=== PATIENT | female | born 1950 | race Caucasian/White ===

== ENCOUNTER → 2020-08-11 | Outpatient (CLI) | payer MEDICARE, SELFPAY ==
[2020-08-11 14:54] VITALS: BMI 25.5
[2020-08-11 21:47] LABS: Absolute Lymphocyte Count 3.41 X10^3/uL (0.83-4.51); Absolute Neutrophil Count 4.8 X10^3/uL (2.0-7.7); Basophil# 0.05 X10^3/uL; Basophil% 0.6 % (0-1); Eosinophil# 0.13 X10^3/uL; Eosinophils% 1.4 % (0-5); Hemoglobin 13.7 g/dL (12.0-15.0); Lymphocyte # 3.41 X10^3/ul (4.0); Lymphocyte % 37.8 % (19-41); Mean Corp Hgb Conc 31.9 g/dL (32-36); Mean Corpuscular Hgb 27.9 pg (27.0-32.0); Mean Corpuscular Volume 87.6 fL (81-99); Mean Platelet Vol. 9.6 fl (6.2-12.0); Monocyte# 0.61 X10^3/uL; Monocyte% 6.8 % (0-10); NRBC Flagged by Analyzer 0 % (0-5); Neutrophil % 53.3 % (47-70); Platelet Count 371 K/mm3 (150-450); RBC Distribution Width CV 12.9 % (11.6-14.6); RBC Distribution Width SD 41.5 fl (35.1-43.9); Red Blood Count 4.91 M/mm3 (4.2-5.4)
[2020-08-11 22:17] LABS: ALB/GLOB Ratio 0.9 RATIO (0.9-2.4); AST(SGOT) 12 U/L (15-37); Alanine Aminotransfer ALT/SGPT 19 U/L (13-56); Albumin, Serum 3.8 g/dL (3.2-5.0); Alkaline Phosphatase 71 U/L (45-117); Anion Gap 5 (5-15); BUN 20 mg/dL (7-18); BUN/Creat Ratio 20.4 RATIO (10-20); Chloride 103 mmol/L (98-107); Cholesterol 223 mg/dL (200); Creatinine, Serum 0.98 mg/dL (0.55-1.02); EST Glomerular Filtration Rate 60 mL/min (>60); Est Glom Filt Rate - Afr Amer 73 mL/min (>60); Globulin 4.2 g/dL (2.2-4.2); Glucose 91 mg/dL (74-106); High Density Lipoprotein 41 mg/dL; Potassium 4.2 mmol/L (3.5-5.1); Sodium Level 137 mmol/L (136-145); Triglycerides 247 mg/dL; Very Low Density Lipoprotein 49 mg/dL (5-40)
== END | disposition home or self-care (01) ==
PROVIDERS: Referring Provider Nurse Practitioner; Visit Provider Nurse Practitioner
DX: I10 Essential (primary) hypertension (principal)
CPT/HCPCS: 80053; 80061; 85025

== ENCOUNTER 2021-10-23 21:32 | Outpatient (CLI) | payer MEDICARE, SELFPAY ==
[2021-10-23 21:41] LABS: Absolute Lymphocyte Count 3.09 X10^3/uL (0.83-4.51); Basophil# 0.05 X10^3/uL; Basophil% 0.6 % (0-1); Eosinophil# 0.22 X10^3/uL; Eosinophils% 2.8 % (0-5); Hematocrit 39.8 % (37-47); Lymphocyte # 3.09 X10^3/ul (0.83-4.51); Mean Corp Hgb Conc 32.7 g/dL (32-36); Mean Corpuscular Hgb 28.3 pg (27.0-32.0); Mean Corpuscular Volume 86.7 fL (81-99); Mean Platelet Vol. 9.7 fl (6.2-12.0); Monocyte# 0.59 X10^3/uL; Monocyte% 7.4 % (0-10); NRBC Flagged by Analyzer 0 % (0-5); Neutrophil # 3.97 X10^3/uL (2.7-7.7); Neutrophil % 50.1 % (47-70); Platelet Count 389 K/mm3 (150-450); RBC Distribution Width CV 12.7 % (11.6-14.6); RBC Distribution Width SD 40.3 fl (35.1-43.9); Red Blood Count 4.59 M/mm3 (4.2-5.4); White Blood Count 7.9 K/mm3 (4.4-11.0)
[2021-10-23 22:01] LABS: AST(SGOT) 16 U/L (15-37); Alanine Aminotransfer ALT/SGPT 25 U/L (13-56); Albumin, Serum 3.9 g/dL (3.2-5.0); Alkaline Phosphatase 71 U/L (45-117); Anion Gap 7 (5-15); BUN 19 mg/dL (7-18); BUN/Creat Ratio 20.7 RATIO (10-20); Calcium,Total 9.6 mg/dL (8.5-10.1); Chloride 102 mmol/L (98-107); Cholesterol 238 mg/dL (200); Creatinine, Serum 0.92 mg/dL (0.55-1.02); EST Glomerular Filtration Rate 65 mL/min (>60); Est Glom Filt Rate - Afr Amer 78 mL/min (>60); Globulin 3.9 g/dL (2.2-4.2); Glucose 122 mg/dL (74-106); High Density Lipoprotein 41 mg/dL; Potassium 3.8 mmol/L (3.5-5.1); Protein, Total 7.8 g/dL (6.4-8.2); Sodium Level 138 mmol/L (136-145); T4 Free Direct 1.09 ng/dL (0.76-1.46); Thyroid Stim Hormone (TSH) 2.32 uIU/mL (0.358-3.74); Triglycerides 225 mg/dL; Very Low Density Lipoprotein 45 mg/dL (5-40)
[2021-10-25 21:43] LABS: ANTINUCLEAR ANTIBODIES DIRECT Negative (Negative)
[2021-10-25 21:45] LABS: EBV Acute VCA IgM < 36.0 U/mL (0.0-35.9)
== END 2021-10-23 23:59 | disposition short-term general hospital (02) ==
PROVIDERS: Referring Provider Nurse Practitioner; Visit Provider Nurse Practitioner
DX: I10 Essential (primary) hypertension (principal); I73.00 Raynaud's syndrome without gangrene; L65.9 Nonscarring hair loss, unspecified; G47.10 Hypersomnia, unspecified
CPT/HCPCS: 80053; 80061; 84439; 84443; 85025; 86038; 86225; 86235; 86664; 86665

== ENCOUNTER → 2022-10-24 | Outpatient (CLI) | payer MEDICARE, SELFPAY ==
[2022-10-24 21:19] LABS: Absolute Lymphocyte Count 3.89 X10^3/uL (0.83-4.51); Absolute Neutrophil Count 4.4 X10^3/uL (2.0-7.7); Basophil# 0.04 X10^3/uL; Basophil% 0.4 % (0-1); Eosinophil# 0.11 X10^3/uL; Eosinophils% 1.2 % (0-5); Hematocrit 39.5 % (37-47); Hemoglobin 13.4 g/dL (12.0-15.0); Lymphocyte # 3.89 X10^3/ul (0.83-4.51); Lymphocyte % 42.2 % (19-41); Mean Corp Hgb Conc 33.9 g/dL (32-36); Mean Corpuscular Volume 85.5 fL (81-99); Mean Platelet Vol. 9.8 fl (6.2-12.0); Monocyte# 0.72 X10^3/uL; Monocyte% 7.8 % (0-10); NRBC Flagged by Analyzer 0 % (0-5); Neutrophil # 4.43 X10^3/uL (2.7-7.7); Neutrophil % 48.2 % (47-70); Platelet Count 326 K/mm3 (150-450); RBC Distribution Width CV 13.1 % (11.6-14.6); RBC Distribution Width SD 40.8 fl (35.1-43.9); Red Blood Count 4.62 M/mm3 (4.2-5.4); White Blood Count 9.2 K/mm3 (4.4-11.0)
[2022-10-24 21:37] LABS: ALB/GLOB Ratio 0.9 RATIO (0.9-2.4); AST(SGOT) 18 U/L (15-37); Alanine Aminotransfer ALT/SGPT 26 U/L (13-56); Albumin, Serum 3.8 g/dL (3.2-5.0); Alkaline Phosphatase 71 U/L (45-117); Anion Gap 9 (5-15); BUN 19 mg/dL (7-18); BUN/Creat Ratio 18.4 RATIO (10-20); Calcium,Total 9.5 mg/dL (8.5-10.1); Chloride 100 mmol/L (98-107); Cholesterol 233 mg/dL (200); Creatinine, Serum 1.03 mg/dL (0.55-1.02); EST Glomerular Filtration Rate 56 mL/min (>60); Est Glom Filt Rate - Afr Amer 68 mL/min (>60); Globulin 4.1 g/dL (2.2-4.2); Glucose 93 mg/dL (74-106); High Density Lipoprotein 42 mg/dL; Potassium 4.1 mmol/L (3.5-5.1); Protein, Total 7.9 g/dL (6.4-8.2); Sodium Level 136 mmol/L (136-145); Triglycerides 342 mg/dL; Very Low Density Lipoprotein 68 mg/dL (5-40)
== END | disposition home or self-care (01) ==
PROVIDERS: Referring Provider Nurse Practitioner; Visit Provider Nurse Practitioner
DX: M54.10 Radiculopathy, site unspecified (principal); I10 Essential (primary) hypertension
CPT/HCPCS: 80053; 80061; 85025

== ENCOUNTER → 2024-11-17 | Outpatient (CLI) | payer MEDICARE, SELFPAY ==
[2024-11-17 21:59] LABS: Absolute Lymphocyte Count 3.67 X10^3/uL (0.83-4.51); Basophil# 0.07 X10^3/uL; Basophil% 0.8 % (0-1); Eosinophil# 0.14 X10^3/uL; Eosinophils% 1.6 % (0-5); Hematocrit 40.6 % (37-47); Hemoglobin 13.2 g/dL (12.0-15.0); Lymphocyte # 3.67 X10^3/ul (0.83-4.51); Lymphocyte % 43.2 % (19-41); Mean Corp Hgb Conc 32.5 g/dL (32-36); Mean Platelet Vol. 9.7 fl (6.2-12.0); Monocyte# 0.64 X10^3/uL; Monocyte% 7.5 % (0-10); NRBC Flagged by Analyzer 0 % (0-5); Neutrophil # 3.97 X10^3/uL (2.7-7.7); Neutrophil % 46.8 % (47-70); Platelet Count 374 K/mm3 (150-450); RBC Distribution Width CV 12.8 % (11.6-14.6); RBC Distribution Width SD 39.8 fl (35.1-43.9); Red Blood Count 4.72 M/mm3 (4.2-5.4); White Blood Count 8.5 K/mm3 (4.4-11.0)
[2024-11-17 22:22] LABS: Vitamin B12 788 pg/mL (211-911)
[2024-11-17 22:23] LABS: ALB/GLOB Ratio 1.1 RATIO (0.9-2.4); AST(SGOT) 20 U/L (15-37); Alanine Aminotransfer ALT/SGPT 26 U/L (13-56); Albumin, Serum 4.2 g/dL (3.2-5.0); Alkaline Phosphatase 76 U/L (45-117); Anion Gap 5 (5-15); BUN 16 mg/dL (7-18); BUN/Creat Ratio 20.1 RATIO (10-20); Calcium,Total 9.9 mg/dL (8.5-10.1); Chloride 105 mmol/L (98-107); Cholesterol 257 mg/dL (200); EST Glomerular Filtration Rate 75 mL/min (>60); Est Glom Filt Rate - Afr Amer 91 mL/min (>60); Globulin 3.8 g/dL (2.2-4.2); Glucose 96 mg/dL (74-106); High Density Lipoprotein 47 mg/dL; Sodium Level 137 mmol/L (136-145); Triglycerides 207 mg/dL; Very Low Density Lipoprotein 41 mg/dL (5-40)
== END | disposition home or self-care (01) ==
PROVIDERS: Referring Provider Nurse Practitioner; Visit Provider Nurse Practitioner
DX: L63.9 Alopecia areata, unspecified (principal); I10 Essential (primary) hypertension; E78.5 Hyperlipidemia, unspecified; E55.9 Vitamin D deficiency, unspecified
CPT/HCPCS: 80053; 80061; 82607; 82652; 85025

== ENCOUNTER → 2025-05-03 | Outpatient (CLI) | payer MEDICARE, SELFPAY ==
--- OUTSIDE RECORDS SUMMARY | 2025-05-03 22:03 | XMS RPT_ITS | CCD ---
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 Beckford MD Work Phone: [facility] Comment on above: Appointment Start: 09-25-2022 Telephone encounter Patricia Beckford MD Work Phone: [facility] Comment on above: Schedule Surgery (ph aco right eye ) Start: 09-11-2022 Telephone encounter Patricia Beckford MD Work Phone: [facility] Comment on above: Surgery Cancelled Start: 08-29-2022 End: 08-29-2022 Patient encounter procedure Cm Dumont MD, PhD Work Phone: Ophthalmology Comment on above: Epiretinal membrane (ERM) of right eye (Primary Dx) Start: 08-27-2022 End: 08-27-2022 Patient encounter procedure Wellington Garcia OD Work Phone: Ophthalmology Comment on above: Pseudophakia of left eye (Primary Dx) Start: 08-20-2022 End: 08-20-2022 Patient encounter procedure Patricia Beckford MD Work Phone: [facility] Comment on above: Pseudophakia, left e ye (Primary Dx); Combined forms of age-related cataract of both eyes Start: 08-15-2022 Telephone encounter Patricia Beckford MD Work Phone: [facility] Comment on above: Appointment Start: 08-05-2022 Telephone encounter Patricia Beckford MD Work Phone: [facility] Comment on above: Preparations For Neelam doyle (IOL left eye ) Start: 08-02-2022 End: 08-02-2022 Patient encounter procedure Patricia Beckford MD Work Phone: [facility] Comment on above: Combined forms of ag e-related cataract of both eyes (Primary Dx); Choroidal nevus, left; Iris nevus, right; Horseshoe retinal tear of right eye; PVD (posterior vitreous detachment), right; Damian nevus; Nevus of conjunctiva, right; Myopia, bilateral; Dermatochalasis of both upper eyelids Start: 08-01-2022 Telephone encounter Patricia Beckford MD Work Phone: [facility] Comment on above: Preparations For Neelam doyle (A-scan reminder) Start: 07-03-2022 Orders Only Patricia logan MD Work Phone: [facility] Comment on above: Combined form of sen ile cataract of both eyes (Primary Dx) Start: 05-30-2022 End: 05-30-2022 Patient encounter procedure Cm Dumont MD, PhD Work Phone: Ophthalmology Comment on above: Choroidal nevus, lef t (Primary Dx); Iris nevus, right; Horseshoe retinal tear of right eye; Combined forms of age-related cataract of both eyes Start: 05-22-2022 Telephone encounter Patricia Beckford MD Work Phone: [facility] Comment on above: Appointment Start: 05-21-2022 End: 05-21-2022 Patient encounter procedure Martinez Vazquez MD Work Phone: Ophthalmology Comment on above: Choroidal nevus, lef t (Primary Dx); Iris nevus, right; Damian nevus; Horseshoe retinal tear of right eye Start: 04-19-2022 End: 04-19-2022 Patient encounter procedure Patricia Beckford MD Work Phone: [facility] Comment on above: Combined forms of ag e-related cataract of both eyes (Primary Dx); Nevus of conjunctiva, right; Iris nevus, right; Choroidal nevus, left; PVD (posterior vitreous detachment), right; Vitreous floater, bilateral; Lattice degeneration of retina, bilateral; Myopia, bilateral; Dermatochalasis of both upper eyelids Start: 04-11-2022 End: 04-11-2022 Patient encounter procedure [facility] [place] Work Phone: [facility] Comment on above: Lattice degeneration of retina, bilateral (Primary Dx); Iris nevus, right Subjective visual di sturbance (Primary Dx); Nevus of conjunctiva, right; Iris nevus, right; Choroidal nevus, left; Lattice degeneration of retina, bilateral; PVD (posterior vitreous detachment), right; Nuclear sclerotic cataract of both eyes; Cortical age-related cataract, both eyes Start: 04-08-2022 Telephone encounter Francisco pierre MD Work Phone: [facility] Comment on above: Nurse Triage Call Start: 04-03-2022 End: 04-03-2022 Patient encounter procedure Steven Dwyer MD Work Phone: [facility] Comment on above: Nevus of conjunctiva , right (Primary Dx); Iris nevus, right; Choroidal nevus, left; Vitreous floater, bilateral; PVD (posterior vitreous detachment), right; Nuclear sclerotic cataract of both eyes; Lattice degeneration of retina, bilateral; Cortical age-related cataract, both eyes Start: 01-24-2022 Documentation procedure Mammog faraz Coordinator [facility] Start: 01-24-2022 Letter encounter Mammography Coordinator [facility] Department Start: 01-24-2022 End: 01-24-2022 Subsequent hospital visit by physician Screen/Diagnostic Mammo [facility] Work Phone: Mammography Procedures Date Procedure Procedure Detail Performing Clinician Start: 02-01-2025 Computerized ophthal olivier imaging retina Francine Crouch MD Work Phone: Start: 11-12-2023 Computerized ophthal olivier imaging retina Milton Figueroa MD Work Phone: Start: 06-18-2023 Computerized ophthal olivier imaging retina Milton Figueroa MD Work Phone: Start: 06-12-2023 Computerized ophthal olivier imaging retina Wellington Garcia OD Work Phone: Start: 02-12-2023 Computerized ophthal olivier imaging retina Milton Figueroa MD Work Phone: Start: 12-11-2022 Computerized ophthal olivier imaging retina Wellington Garcia OD Work Phone: Start: 08-29-2022 Computerized ophthal olivier imaging retina Cm Dumont MD, PhD Work Phone: Start: 05-30-2022 Computerized ophthal olivier imaging retina Cm Dumont MD, PhD Work Phone: Start: 05-21-2022 Proph rta dtchmnt w/ o drg 1/> sess Chico Roman MD Work Phone: Start: 05-21-2022 End: 05-21-2022 Xtrnl ocular photog w/i&r [facility] medical progre Chico Roman MD Work Phone: Start: 04-19-2022 Fundus photography w/interpretation & report Steven Dwyer MD Work Phone: Start: 01-24-2022 End: 01-24-2022 Screening mammography bi 2-view breast inc cad Joselyn Marcos AURICULAR THERAPIST.[employer] 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 Work Phone: Start: 01-04-2008 Lipid 1996 panel - S kathryn or Plasma Wellington Garcia OD Work Phone: Plan of Treatment Date Care Activity Detail Author Start: 2027 RSV Vaccine (1 - 1-d ose 75+ series) RSV Vaccine (1 - 1-dose 75+ series) [facility] Start: 08-09-2025 End: 08-09-2025 Patient encounter procedure 08/09/2025 9:30 AM EST Office Visit [facility] [address] [address] Francine Crouch MD [address] [place] [address] [facility] [address] [id number] 6 months follow up Ophthalmology Comment on above: 6 months follow up Start: 06-01-2025 OCT MACULA CIRRUS OU (BOTH EYES) OCT MACULA CIRRUS OU (BOTH EYES) [facility] Imaging Routine Epiretinal membrane (ERM) of right eye Expected: 06/01/2025 [facility] Work Phone: Comment on above: Expected: 06/01/2025 Start: 05-30-2025 Influenza vaccination Influenz a Vaccine (Season Ended) [facility] Start: 12-15-2024 Screening for malign ant neoplasm of breast Mammogram Screening [facility] Start: 11-30-2024 OCT MACULA CIRRUS OU (BOTH EYES) OCT MACULA CIRRUS OU (BOTH EYES) [facility] Imaging Routine Epiretinal membrane (ERM) of right eye Expected: 11/30/2024 [facility] Work Phone: Comment on above: Expected: 11/30/2024 Start: 10-19-2024 End: 10-19-2024 Patient encounter procedure 10/19/2024 10:45 AM EST Office Visit [facility] [address] [address] Francine Crouch MD [address] [place] [address] [id number] [address] Crouch Ophthalmology Comment on above: [address] Crouch Start: 09-29-2024 Advance Directive Discussion Advance Directive Discussion [facility] Start: 05-30-2024 Covid-19 Vaccine () Covid-19 Vaccine () [facility] Start: 05-30-2024 Covid-19 Vaccine () Covid-19 Vaccine () [facility] Start: 05-30-2024 Influenza vaccination [facility] Start: 05-12-2024 End: 05-12-2024 Patient encounter procedure [facility] [place] Comment on above: Return in about 6 mo nths (around 05/12/2024). Letter sent to r/s. Return in about 6 months (around 05/12/2024). Start: 05-02-2024 Camera fundoscopy FUNDUS PHOTO S OU (BOTH EYES) [facility] Imaging Routine Nevus of conjunctiva, right Iris nevus, right Choroidal nevus, left Vitreous floater, bilateral PVD (posterior vitreous detachment), right Nuclear sclerotic cataract of both eyes Lattice degeneration of retina, bilateral Cortical age-related cataract, both eyes Expected: 05/02/2024 [facility] Work Phone: Comment on above: Expected: 05/02/2024 Start: 04-15-2024 End: 04-15-2024 Patient encounter procedure 04/15/2024 10:00 AM EDT Office Visit [facility] [address] [place] [id number] Francine Crouch MD [address] [place], [place] [id number] 6 weeks follow up Ophthalmology Comment on above: 6 weeks follow up Start: 03-04-2024 End: 03-04-2024 Patient encounter procedure 03/04/2024 10:15 AM EDT Office Visit [facility] [address] [address] Francine Crouch MD [address] [place] [id number] 1 month follow up Ophthalmology Comment on above: 1 month follow up Start: 02-27-2024 End: 08-05-2024 OCT MACULA CIRRUS OU (BOTH EYES) OCT MACULA CIRRUS OU (BOTH EYES) [facility] Imaging Routine Epiretinal membrane (ERM) of right eye Pseudophakia of both eyes Retinal tear, right Iris nevus, right Nevus of conjunctiva, right Choroidal nevus, left Expected: 02/27/2024, Expires: 08/05/2024 [facility] Work Phone: Comment on above: Expected: 02/27/2024 , Expires: 08/05/2024 Start: 02-05-2024 End: 02-05-2024 Patient encounter procedure 02/05/2024 10:00 AM EDT Office Visit [facility] [address] [address] Francine Crouch MD [address] [facility] [address] [place] [id number] follow up in [address] crouch Ophthalmology Comment on above: follow up [place] [address] crouch Start: 09-29-2023 Advance Directive Discussion Advance Directive Discussion [facility] Start: 09-29-2023 Behavioral Health Screening Behavioral Health Screening [facility] Start: 09-29-2023 Depression Assessment Depression Ass essment [facility] Start: 09-13-2023 End: 02-20-2024 OCT MACULA CIRRUS OU (BOTH EYES) OCT MACULA CIRRUS OU (BOTH EYES) [facility] Imaging Routine Epiretinal membrane (ERM) of right eye Expected: 09/13/2023, Expires: 02/20/2024 [facility] Work Phone: Comment on above: Expected: 09/13/2023 , Expires: 02/20/2024 Start: 05-30-2023 Covid-19 Vaccine () Covid-19 Vaccine () [facility] Start: 05-30-2023 Influenza vaccination [facility] Start: 01-24-2023 Mammography [facility] Start: 01-24-2023 Screening for malign ant neoplasm of breast Mammogram Screening [facility] Start: 09-29-2022 ADVANCE DIRECTIVE DISCUSSION ADVANCE DIRECTIVE DISCUSSION [facility] Start: 09-29-2022 DEPRESSION ASSESSMENT DEPRESSION ASS ESSMENT [facility] Start: 05-30-2022 Influenza vaccination [facility] Start: 09-29-2021 ADVANCE DIRECTIVE DISCUSSION ADVANCE DIRECTIVE DISCUSSION [facility] Start: 09-29-2021 DEPRESSION [facility]ESS[facility] Start: 2017 BONE DENSITY BONE DENSITY [facility] Start: 2017 Bone Density Screening Bone Density Screening [facility] Start: 2017 Pneumococcal Vaccine : 65+ (1 - PCV) Pneumococcal Vaccine: 65+ (1 - PCV) [facility] Start: 2017 Pneumococcal Vaccine : 65+ (1 of 1 - PCV) Pneumococcal Vaccine: 65+ (1 of 1 - PCV) [facility] Start: 2017 PNEUMOCOCCAL: 65+ (1 - PCV) PNEUMOCOCCAL: 65+ (1 - PCV) [facility] Start: 2017 PNEUMOVAX AGE 65 AND OVER WITH 5YR LOOKBACK (#1) PNEUMOVAX AGE 65 AND OVER WITH 5YR LOOKBACK (#1) [facility] Start: 2017 Screening for osteoporosis Bone Density Screening [facility] Start: 01-03-2013 Lipid 1996 panel - Serum or Plasma Lipid Screening [facility] Start: 01-03-2013 Lipid panel Lipid Screening [facility] Start: 01-03-2013 LIPID SCREEN LIPID SCREEN [facility] Start: 2012 RSV Vaccine (1 - 1-d ose 60+ series) RSV Vaccine (1 - 1-dose 60+ series) [facility] Start: 01-03-2011 DIAB[facility] Start: 01-03-2011 Diabetes Screening Diabetes Screenin g [facility] Start: 2002 Pneumococcal Vaccine : 50+ (1 of 1 - PCV) Pneumococcal Vaccine: 50+ (1 of 1 - PCV) [facility] Start: 2002 SHINGRIX VACCINE (1 of 2) SHINGRIX VACCINE (1 of 2) [facility] Start: 1997 COLOGUARD (FIT-DNA) COLOGUARD (FIT-D NA) [facility] Start: 1997 Colonoscopy COLONOSCOPY [facility] Start: 1997 COLORECTAL CANCER SCREENING COLORECTAL CANCER SCREENING [facility] Start: [address] COLONOGRAPHY [facility] Start: 1997 FECAL OCCULT BLOOD FECAL OCCULT BLOO D [facility] Start: 1997 Screening for malign ant neoplasm of colon [facility] Start: 1997 SIGMOIDOSCOPY SIGMOIDOSCOPY [facility] Start: 1971 Urine microalbumin profile [facility] Start: 1970 Anxiety Screening Anxiety Screening [facility] Start: 1970 Depression Screening Depression Scre ening [facility] Start: 1964 Adult depression screening assessment DEPRESSION SCREENING [facility] Start: 1957 COVID-19 VACCINE (1) COVID-19 VACCIN E (1) [facility] Start: 1952 COVID-19 VACCINE (#1) COVID-19 VACCI NE (#1) [facility] Camera fundoscopy FUNDUS PHOTOS OU (BOTH EYES) [facility] Imaging Routine Lattice degeneration of retina, bilateral 04/11/2022 2:46 PM EDT [facility] Work Phone: CORNEAL TOPOGRAPHY ATLAS OU (BOTH EYES) CORNEAL TOPOGRAPHY ATLAS OU (BOTH EYES) [facility] Imaging Routine Combined forms of age-related cataract of both eyes 1 Occurrences starting 04/19/2022 [facility] Work Phone: Comment on above: 1 Occurrences melissa fregoso 04/19/2022 EXTERNAL PHOTOS OU (BOTH EYES) EXTERNAL PHOTOS OU (BOTH EYES) [facility] Imaging Routine Nevus of conjunctiva, right Iris nevus, right 04/03/2022 4:11 PM EDT [facility] Work Phone: EXTERNAL PHOTOS OU (BOTH EYES) EXTERNAL PHOTOS OU (BOTH EYES) [facility] Imaging Routine Iris nevus, right 04/11/2022 2:19 PM EDT [facility] Work Phone: IOL BIOMETRY W/ IOL CALC OU (BOTH EYES) IOL BIOMETRY W/ IOL CALC OU (BOTH EYES) [facility] Imaging Routine Combined forms of age-related cataract of both eyes 1 Occurrences starting 04/19/2022 [facility] Work Phone: Comment on above: 1 Occurrences melissa fregoso 04/19/2022 Left eye Photo documentation FUNDUS PHOTOS OS (LEFT EYE) [facility] Imaging Routine Lattice degeneration of retina, bilateral 01/10/2024 [facility] Work Phone: Comment on above: 01/10/2024 OCT MACULA CIRRUS OS (LEFT EYE) OCT MACULA CIRRUS OS (LEFT EYE) [facility] Imaging Routine Lattice degeneration of retina, bilateral Ordered: 01/10/2024 [facility] Work Phone: Comment on above: Ordered: 01/10/2024 End: 12-09-2024 OCT MACULA CIRRUS OU (BOTH EYES) OCT MACULA CIRRUS OU (BOTH EYES) [facility] Imaging Routine Epiretinal membrane (ERM) of right eye Pseudophakia of both eyes Retinal tear, right Iris nevus, right Nevus of conjunctiva, right Choroidal nevus, left 1 Occurrences starting 06/18/2023 until 12/09/2024 [facility] Work Phone: Comment on above: 1 Occurrences starti ng 06/18/2023 until 12/09/2024 End: 05-05-2025 OCT MACULA CIRRUS OU (BOTH EYES) OCT MACULA CIRRUS OU (BOTH EYES) [facility] Imaging Routine Epiretinal membrane (ERM) of right eye Pseudophakia of both eyes Retinal tear, right Iris nevus, right Nevus of conjunctiva, right Choroidal nevus, left 1 Occurrences starting 11/12/2023 until 05/05/2025 [facility] Work Phone: Comment on above: 1 Occurrences starti ng 11/12/2023 until 05[facility]05/2025 [facility] B[facility] Payers Date Payer Category Payer Self-pay [id number] 2019 Medicare UHC AARP MEDICAR E [facility] MEDICARE O [id number] 2019-Present [phone] [address] [address] [place] [address] O [id number] 2019 Medicare UHC AARP MEDICAR E [facility] AAR MEDICARE O [id number] 2019-Present [phone] [address] [address] [place] [address] O [id number] 2019 Medicare (Managed Care) [facility] MEDICARE O [id number] 2019 Unknown [id number] Medicare MEDICARE PART A B [id number] Unknown [id number] Social History Date Type Detail Facility Start: 08-16-2020 End: 08-02-2022 Tobacco smoking status NHIS Never smoked tobacco [facility] Work Phone: Start: 08-16-2020 End: 02-01-2025 Alcohol intake Not Asked [facility] Start: 1950 Sex Assigned At Not on file [facility] Start: 01-14-2022 End: 08-19-2022 Exposure to SARS-CoV-2 (event) Not sure [facility] Start: 08-16-2020 End: 08-02-2022 Tobacco use and exposure Smokeless tobacco non-user [facility] Start: 1950 Sex Assigned At Female [facility] Start: 02-12-2023 End: 06-12-2023 History of Social function [facility] Start: 02-12-2023 End: 06-12-2023 Tobacco use panel [facility] National Score (1-100), lower number is lower risk 40 [facility] Medical Equipment Procedure Code Equipment Code Equipment Origin al Text Equipment Identifier Dates Lens Acrysof Ultrasert +22 Diopter Acrylic Iol 1 Piece Foldable Uv Blue - [id number] Start: 08-19-2022 Lens Acrysof Ultrasert +22 Diopter Acrylic Iol 1 Piece Foldable Uv Blue - [id number] Start: 11-19-2022 Gas Ispan Constellation Intraocular Vision System [id number] 125gm - [id number] Start: 01-12-2024 Comment on above: Description: 14% Strip Silicone 125x3.5x.75mm Scleral Style 41 - [id number] Start: 01-12-2024 Sleeve 2.1mm 1mm Silicone 70mm Retinal Round Sterile - [id number] Start: 01-12-2024 Clinical Notes 01-24-2022 to 02-01-2025 Francine Crouch MD - 02/01/2025 11:20 AM Erna Oviedo OD - 06/09/2024 9:46 AM Francine Barahona MD - 04/15/2024 12:14 PM EDTPatient InstructionsPatient InstructionsPatient Instructions Note Date & Type Note Facility 02-01-2025 Note Date of Procedure 02/01/2025. 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 OCT Macula Interpretation Right Eye Abnormal foveal contour. Findings include Epiretinal membrane. Left Eye Normal foveal contour. Findings include Epiretinal membrane; Negative for Intraretinal fluid, Subretinal fluid. Interval Change Right Eye Stable. Left Eye Better. [facility] 02-01-2025 Note HNO ID: [id number] Author: FRANCINE CROUCH MD Service: ? 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 Visual acuity with correction is 20/40 RE and 20/30 LE. IOP 21/20. Anterior segment exam is significant for PCL with mild PCO in the RE. Dilated fundus examination demonstrates good scleral buckle with retina attached 360 and inferior vitreous skirt. Regarding ERM in RE, patient is slightly symptomatic with metamorphopsia but states it is stable for now. OCT today about stable from first available OCT in 05/2022. Patient is not interested in Pars plana vitrectomy/MS at this time. Will also observe PCO OD as she is not very bothered. I have confirmed and edited as necessary the relevant ophthalmic history, ROS, and the neuro exam findings as obtained by others. I have seen and examined Kyliesteven Burnett. I have discussed the case and the management of this patient's care with the Resident/Fellow, if applicable. I also have reviewed and agree with the assessment and plan as stated above and agree with all of its relevant components. 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 Visual acuity with correction is 20/40 RE and 20/30 LE. IOP 21/20. Anterior segment exam is significant for PCL with mild PCO in the RE. Dilated fundus examination demonstrates good scleral buckle with retina attached 360 and inferior vitreous skirt. Regarding ERM in RE, patient is slightly symptomatic with metamorphopsia but states it is stable for now. OCT today about stable from first available OCT in 05/2022. Patient is not interested in Pars plana vitrectomy/MS at this time. Will also observe PCO OD as she is not very bothered. I have confirmed and edited as necessary the relevant ophthalmic history, ROS, and the neuro exam findings as obtained by others. I have seen and examined Kylie Burnett. I have discussed the case and the management of this patient's care with the Resident/Fellow, if applicable. I also have reviewed and agree with the assessment and plan as stated above and agree with all of its relevant components. documented in this encounter [facility] 06-09-2024 Note HNO ID: [id number] Author: ERNA DIAZ, MANDEEP Service: ? Author Type: JEWELRY COATER Type: Progress Notes Filed: 06/09/2024 10:04 Note Text: 1. Refractive error 2. 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 Crouch. Erna Diaz, OD [facility] 06-09-2024 History of Presen t illness Narrative 1. Refractive error 2. 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 Crouch. Erna Diaz, OD documented in this encounter [facility] 04-15-2024 Note HNO ID: [id number] Author: FRANCINE CROUCH MD Service: ? 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 Visual acuity with correction is 20/40 RE and 20/30 LE. IOP 12/17. Anterior segment exam is significant for PCL with mild PCO in the RE. Dilated fundus examination demonstrates good scleral buckle with retina attached 360 and inferior vitreous skirt. Patient has been off drops x 10 days. Regarding ERM in RE, patient is slightly symptomatic with metamorphopsia but states it is stable for now. Will consider OCT at next visit. Will also observe PCO OD as she is not very bothered. I have confirmed and edited as necessary the relevant ophthalmic history, ROS, and the neuro exam findings as obtained by others. I have seen and examined Kylie Burnett. I have discussed the case and the management of this patient's care with the Resident/Fellow, if applicable. I also have reviewed and agree with the assessment and plan as stated above and agree with all of its relevant components. 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 Visual acuity with correction is 20/40 RE and 20/30 LE. IOP 12/17. Anterior segment exam is significant for PCL with mild PCO in the RE. Dilated fundus examination demonstrates good scleral buckle with retina attached 360 and inferior vitreous skirt. Patient has been off drops x 10 days. Regarding ERM in RE, patient is slightly symptomatic with metamorphopsia but states it is stable for now. Will consider OCT at next visit. Will also observe PCO OD as she is not very bothered. I have confirmed and edited as necessary the relevant ophthalmic history, ROS, and the neuro exam findings as obtained by others. I have seen and examined Kylie Burnett. I have discussed the case and the management of this patient's care with the Resident/Fellow, if applicable. I also have reviewed and agree with the assessment and plan as stated above and agree with all of its relevant components. documented in this encounter [facility] 03-04-2024 Instructions Francine Crouch MD - 03/04/2024 12:21 PM EDT POST OPERATIVE INSTRUCTIONS Questions/problems: Call Dr. Crouch at [phone] hit zero or [phone] ask for eye doc job honer Activity: No strenuous activities such as exercise, bending, or lifting (> 15 lbs) for 4-6 weeks Positioning: any Protection: Shield at bedtime; glasses or shield during the day for 2 weeks Follow-up: 6 weeks Comfort measures: Warm compress 30 seconds after drops Drops: Give 5 minutes between each drop. Do not rub the eye. These drops are for the surgical eye. Steroid Drop Prednisolone (pink cap) 1 drop 4 times a day when bubble resorbs taper 3-2-1 over each week Glaucoma meds Cosopt and alphagan reduce to 1x a day when pred is 1x a day, then stop both when pred stops. Drops that are to be taken four times a day can be given approximately at Breakfast, Lunch, Dinner, and Before bedtime. Continue all drops as instructed until follow up. documented in this encounter [facility] 03-04-2024 Note HNO ID: [id number] Author: FRANCINE CROUCH MD Service: ? 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 Visual acuity with correction is 20/30 OU. IOP 14/13. Anterior segment exam is significant for PCL. Dilated fundus examination demonstrates good scleral buckle with retina attached 360 and inferior vitreous skirt. I recommend taper Predforte over the next 4 weeks continue Cosopt twice a day and brimonidine three times a day. Follow up in 4 weeks. I have confirmed and edited as necessary the relevant ophthalmic history, ROS, and the neuro exam findings as obtained by others. I have seen and examined Kylie Burnett. I have discussed the case and the management of this patient's care with the Resident/Fellow, if applicable. I also have reviewed and agree with the assessment and plan as stated above and agree with all of its relevant components. 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 Visual acuity with correction is 20/30 OU. IOP 14/13. Anterior segment exam is significant for PCL. Dilated fundus examination demonstrates good scleral buckle with retina attached 360 and inferior vitreous skirt. I recommend taper Predforte over the next 4 weeks continue Cosopt twice a day and brimonidine three times a day. Follow up in 4 weeks. I have confirmed and edited as necessary the relevant ophthalmic history, ROS, and the neuro exam findings as obtained by others. I have seen and examined Kylie Burnett. I have discussed the case and the management of this patient's care with the Resident/Fellow, if applicable. I also have reviewed and agree with the assessment and plan as stated above and agree with all of its relevant components. documented in this encounter [facility] 02-05-2024 Instructions Francine Crouch MD - 02/05/2024 12:09 PM EDT 1 WEEK POST OPERATIVE INSTRUCTIONS Questions/problems: Call Dr. Crouch at [phone] or [phone] (ask for eye doc job honer) or cell [phone] Positioning: Face down redaing position during day face down at night pillow on right cheek. Protection: Shield at bedtime; glasses or shield during the day for 2 weeks Follow-up: Drops: Give 5 minutes between each drop. Do not rub the eye. These drops are for the surgical eye. Steroid Drop Prednisolone (pink cap) 1 drop 4 times a day (begin taper- 1 drop 3 times a day for 1 week, then 1 drop 2 times a day for 1 week then 1 drop 1 time a day for a week then Stop) Pressure lowering drop Cosopt (blue cap) 1 drop 2 times a day Alphagan (purple top) 1 drop 2 times a day documented in this encounter [facility] 02-05-2024 Note HNO ID: [id number] Author: FRANCINE CROUCH MD Service: ? 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 Visual acuity with correction is 20/40 OU. IOP 16/14. Anterior segment exam is significant for PCL. Dilated fundus examination demonstrates good scleral buckle with retina attached 360 and inferior vitreous skirt. I recommend taper Predforte over the next 4 weeks continue Cosopt twice a day and brimonidine three times a day. Follow up in 4 weeks. I have confirmed and edited as necessary the relevant ophthalmic history, ROS, and the neuro exam findings as obtained by others. I have seen and examined Kylie Magaly Lex. I have discussed the case and the management of this patient's care with the Resident/Fellow, if applicable. I also have reviewed and agree with the assessment and plan as stated above and agree with all of its relevant components. 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 Visual acuity with correction is 20/40 OU. IOP 16/14. Anterior segment exam is significant for PCL. Dilated fundus examination demonstrates good scleral buckle with retina attached 360 and inferior vitreous skirt. I recommend taper Predforte over the next 4 weeks continue Cosopt twice a day and brimonidine three times a day. Follow up in 4 weeks. I have confirmed and edited as necessary the relevant ophthalmic history, ROS, and the neuro exam findings as obtained by others. I have seen and examined Kylie Burnett. I have discussed the case and the management of this patient's care with the Resident/Fellow, if applicable. I also have reviewed and agree with the assessment and plan as stated above and agree with all of its relevant components. documented in this encounter [facility] 01-20-2024 History of Presen t illness Narrative This is a 73 year old female diagnosed upon referral with myopic chronic RRD with PVR C2 LE POW 1. Visual acuity with correction is 20/70 ph RE and CF LE. IOP 13 /16 . Anterior segment exam is significant for PCL. Dilated fundus examination demonstrates good scleral buckle with retina attached 360 and inferior vitreous skirt. Currently on: Predforte 6x/day, gentamicin four times a day , Cosopt twice a day, brimonidine twice a day, and atropine twice a day; ran out of Diamox ~4 days ago. I recommend stopping gent and atropine, continue Predforte 4x/day for 1 more week (then taper to four times a day ), continue Cosopt twice a day and brimonidine three times a day.Continue sleeping on right side, no flat on back until gas gone. I have confirmed and edited as necessary the relevant ophthalmic history, ROS, and the neuro exam findings as obtained by others. I have seen and examined Kylie Burnett. I have discussed the case and the management of this patient's care with the Resident/Fellow, if applicable. I also have reviewed and agree with the assessment and plan as stated above and agree with all of its relevant components. documented in this encounter [facility] 01-20-2024 Instructions Francine Crouch MD - 01/20/2024 11:52 AM EDT 1 WEEK POST OPERATIVE INSTRUCTIONS Questions/problems: Call Dr. Crouch at [phone] or [phone] (ask for eye doc job honer) or cell [phone] Activity: No strenuous activities such as exercise, bending, or lifting (> 15 lbs) for 4-6 weeks Positioning: Face down redaing position during day face down at night pillow on right cheek. Protection: Shield at bedtime; glasses or shield during the day for 2 weeks Follow-up: 10d Drops: Give 5 minutes between each drop. Do not rub the eye. These drops are for the surgical eye. Antibiotic Drop Gentamicin (white cap) 1 drop 4 times a day (STOP once bottle is empty) Steroid Drop Prednisolone (pink cap) 1 drop 4 times a day (REFILL and continue 4 times a day until I see you back) Dilating drop Atropine (registered massage therapist) 1 drop 2 times a day (STOP once bottle is empty) Pressure lowering drop Cosopt (blue cap) 1 drop 2 times a day Alphagan (purple top) 1 drop 2 times a day Drops that are to be taken four times a day can be given approximately at Breakfast, Lunch, Dinner, and Before bedtime. Continue all drops as instructed until follow up. documented in this encounter [facility] 01-13-2024 History of Presen t illness Narrative This is a 73 year old female diagnosed upon referral with myopic chronic RRD with PVR C2 LE POD 1. Visual acuity with correction is 20/80 RE and HM LE. IOP 17 /38 . Anterior segment exam is significant for PCL and fibrin. Dilated fundus examination demonstrates attached retina 360 EL. I recommend Diamox pred gent atropine bromnidine cosopt. and follow up in 1 week. I have confirmed and edited as necessary the relevant ophthalmic history, ROS, and the neuro exam findings as obtained by others. I have seen and examined Kylie Burnett. I have discussed the case and the management of this patient's care with the Resident/Fellow, if applicable. I also have reviewed and agree with the assessment and plan as stated above and agree with all of its relevant components. documented in this encounter [facility] 01-13-2024 Instructions Francine Crouch MD - 01/13/2024 11:55 AM EDT POST OPERATIVE INSTRUCTIONS Questions/problems: Call Dr. Crouch at [phone] or [phone] (ask for eye doc job honer) or cell [phone] Activity: No strenuous activities such as exercise, bending, or lifting (> 15 lbs) for 4-6 weeks Shower: None for 2 days (keep water out of the eye) Positioning: Face down redaing position during day face down at night pillow on right cheek. Protection: Shield at bedtime; glasses or shield during the day for 2 weeks Follow-up: 1 week Comfort measures: Warm compress for 30 seconds after drops (for 3 - 5 days) Drops: Give 5 minutes between each drop. Do not rub the eye. These drops are for the surgical eye. Antibiotic Drop Gentamicin (white cap) 1 drop 4 times a day Steroid Drop Prednisolone (pink cap) 1 drop 4 times a day Dilating drop Atropine (registered massage therapist) 1 drop 2 times a day Pressure lowering drop Cosopt (blue cap) 1 drop 2 times a day Alphagan (purple top) 1 drop 2 times a day Acetozolamide pills 1 pill 3x a day Drops that are to be taken four times a day can be given approximately at Breakfast, Lunch, Dinner, and Before bedtime. Continue all drops as instructed until follow up. documented in this encounter [facility] 01-10-2024 History and physical note Pre-Operative History and Physical CC: pre-operative history and physical exam HPI: A 73 year old female with new retinal detachment OS will be undergoing retinal detachment repair. Functional Status: Can climb two flights of stairs without getting short of breath. 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 Denies cough, pneumonia in past 6 months, CV: Denies angina, recent NE/PCI/CABG, peripheral edema Abdomen: Endorses occasional constipation. Denies diarrhea, melena, hematemesis, ascities Endo: Denies recent steroid use and diabetes Hematologic: Denies easy bruising/bleeding, antiplatelet/anticoagulation use. Denies history of cancer. 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 Floaters, right Iris nevus, right Lattice degeneration of retina, bilateral Nevus Right Eye Nevus of conjunctiva, right NS (nuclear sclerosis), bilateral Pseudophakia Right Eye PVD (posterior vitreous detachment), right Vitreous floater, bilateral PSH PAST SURGICAL HISTORY Procedure Laterality Date PAST SURGICAL HISTORY OF wisdom teeth removal PAST SURGICAL HISTORY OF 09/29/1985 d and c REMV CATARACT EXTRACAP,INSERT LENS Left 08/19/2022 :S/P Phaco IOL 08/19/22 DrCingle REMV CATARACT EXTRACAP,INSERT LENS Right 11/19/2022 SOCIAL HISTORY Social History Tobacco Use Smoking status: Never Smokeless tobacco: Never Vaping Use Vaping Use: Never used MEDICATIONS Prior to Admission keTORolac (ACULAR) 0.5 % ophthalmic solution Use 1 Drop in the right eye four times daily. Start 2 days before surgery, then continue afterwards. (Patient not taking: Reported on 11/12/2023) prednisoLONE acetate (PRED FORTE, ECONOPRED PLUS) 1 % ophthalmic suspension Use 1 Drop in the right eye four times daily. Start the day of surgery (Patient not taking: Reported on 11/12/2023) valACYclovir (VALTREX) 1 gram Take 2,000 mg by mouth twice daily. For 1 day as needed (Patient not taking: Reported on 11/12/2023) docosahexaenoic acid/epa (FISH OIL ORAL) Take by mouth. (Patient not taking: Reported on 06/18/2023) lisinopril (ZESTRIL, PRINIVIL) 10 mg tablet Take 10 mg by mouth once daily. MULTIVITAMIN TAB TAKE 1 TAB 2-4 TIMES WEEKLY (Patient not taking: Reported on 11/12/2023) Admission No current facility-administered medications for this visit. ALLERGIES ALLERGIES Allergen Reactions Codeine Other: See Comments headache Exam: HR: 100 BP: 208/101 Gen: No acute distress, alert and oriented x3 Neck: No caroitd bruits, 2+ pulses Resp: CTAB CV: Regular rate and rhythm , no R/G/M, normal S1 and S2 Abd: Soft, non-tender, non-distneded, + bowel sounds Neuro: motor and sensory grossly intact Assessment and Plan: A 73 year old female will be undergoing a procedure that is deemed low-risk for a perioperative cardiac event. The patient is low risk for a perioperative cardiac event per the AHA guidelines. Recommend evaluation by anesthesia prior to taking patient to OR. 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, Left Eye - Patient reports new-onset black semi-nenana in vision OS - Proceeded by 1 day of increased floaters blurriness, photophobia - Also endorses flashes when moving/blinking eye - Exam with temporal retinal detachment spanning 1:30 - 4:00 - Fovea on, mac off - Break located at 2:00 - PVD present - Pseudophakic Plan: - Discussed with on-call retina fellow - Will plan tentatively for OR tomorrow - Consent signed - H&P completed - Discussed with patient to present to [facility] - Patient instructed to be NPO at 2:00 AM Armand Engel Ophthalmology Resident, PGY-2 [address]rs[address] Keating and Sha ---Previous note copied below--- Symptomatic retinal tear, left eye - has a fairly posterior tear with cuff of SRF. Denies scotoma. Discussed options of PPV vs laser retinopexy and she opted for laser retinopexy. - s/p Laser retinopexy left eye 10/01/2023, well lasered with early scars forming - Retinal detachment precautions reviewed with patient Posterior vitreous detachment, both eyes Lattice degeneration, both eyes -Reviewed increased risk of retinal holes/tears/ or detachments. - Retinal detachment precautions reviewed with patient Retinal tear, right eye - s/p laser Retinopexy 05/21/2022 (Suzan Vazquez) Epiretinal membrane, right eye - significant distortion in vision; some component of decreased vision could be related to significant vitreous opacities as well - likely contributing to vision loss - notices that the central area is distorted - bothered by significant floaters - previously long discussion regarding r/b/a/c of surgery vs observation, patient elected to observe - vision and OCT remain unchanged - we again discussed surgery and she remains hesitant, will continue to observe Pseudophakia, both eyes - s/p CE/IOL OD 11/19/22 and OS 08/19/22 (Dr. Beckford) Iris nevus, right eye Nevus of conjunctiva, right eye - stable, observe Choroidal Nevus, left eye - I discussed the diagnosis of a choroidal nevus, the known biology, and the association with progression to uveal melanoma including the known clinical factors for progression to melanoma. - This lesion is felt to be of low risk, observe documented in this encounter [facility] 12-17-2023 Miscellaneous Notes December 17, 2023 PID: [id number] Kylie Arriaza Lex [address] [place] [address] Dear Karishma Lex, We are pleased to inform you that the results of your recent breast imaging exam on 12/16/2023 are normal. Early detection of cancer is very important. We also understand recommendations regarding breast cancer screening are controversial. Please discuss with your primary care provider which strategy is best for you and whether a mammogram is right for you. Your imaging studies and report will be kept on file at [facility] as part of your permanent medical record and are available for your continuing care. Thank you for allowing us to help in meeting your health care needs. Sincerely, Dr. Hendricks Interpreting Radiologist [facility] (Normal over 40) documented in this encounter [facility] 12-02-2023 History of Presen t illness Narrative 1. Myopia, bilateral 2. Regular astigmatism of right eye 3. Presbyopia -h/o tear OS, PVD OU, lattice OU, tear OD, ERM OD, pseudophakia OU, choroid nevus OD, conjunctival nevus OS, follows with Dr. Figueroa. Here today for refraction -BCVA: 20/30+, 20/20 OS -released new spec Rx -RTC as needed for refraction Erna Diaz, OD documented in this encounter [facility] 11-12-2023 History of Presen t illness Narrative Symptomatic retinal tear, left eye - has a fairly posterior tear with cuff of SRF. Denies scotoma. Discussed options of PPV vs laser retinopexy and she opted for laser retinopexy. - s/p Laser retinopexy left eye 10/01/2023, well lasered with early scars forming - Retinal detachment precautions reviewed with patient - follow up 6 months Posterior vitreous detachment, both eyes Lattice degeneration, both eyes -Reviewed increased risk of retinal holes/tears/ or detachments. - Retinal detachment precautions reviewed with patient Retinal tear, right eye - s/p laser Retinopexy 05/21/2022 (Suzan Vazquez) Epiretinal membrane, right eye - significant distortion in vision; some component of decreased vision could be related to significant vitreous opacities as well - likely contributing to vision loss - notices that the central area is distorted - bothered by significant floaters - previously long discussion regarding r/b/a/c of surgery vs observation, patient elected to observe - vision and OCT remain unchanged - we again discussed surgery and she remains hesitant, will continue to observe Pseudophakia, both eyes - s/p CE/IOL OD 11/19/22 and OS 08/19/22 (Dr. Beckford) Iris nevus, right eye Nevus of conjunctiva, right eye - stable, observe Choroidal Nevus, left eye - I discussed the diagnosis of a choroidal nevus, the known biology, and the association with progression to uveal melanoma including the known clinical factors for progression to melanoma. - This lesion is felt to be of low risk, observe I have confirmed and edited as necessary the relevant ophthalmic history, HPI, ROS, and the neuro exam findings as obtained by others. I have seen and examined this patient. I have discussed the case and the management of this patient's care with the Resident/Fellow, if applicable. I also have reviewed and agree with the assessment and plan as stated above and agree with all of its relevant components. documented in this encounter [facility] 06-18-2023 History of Presen t illness Narrative Recently seen by Dr. Garcia for routine check-up after cataract surgery. Noticing fluctuating vision OD. Previously seen with Dr. Dumont Epiretinal membrane, right eye - significant distortion in vision; some component of decreased vision could be related to significant vitreous opacities as well - likely contributing to vision loss - notices that the central area is distorted - bothered by significant floaters - previously long discussion regarding r/b/a/c of surgery vs observation, patient elected to observe - vision and OCT stable - patient still hesitant to proceed - observe - follow up 6 months Pseudophakia, both eyes - s/p CE/IOL OD 11/19/22 and OS 08/19/22 (Dr. Beckford) Retinal tear, right eye - s/p laser Retinopexy 05/21/2022 Iris nevus, right eye Nevus of conjunctiva, right eye - stable, observe Choroidal Nevus, left eye - I discussed the diagnosis of a choroidal nevus, the known biology, and the association with progression to uveal melanoma including the known clinical factors for progression to melanoma. - This lesion is felt to be of low risk, observe I have confirmed and edited as necessary the relevant ophthalmic history, ROS, and the neuro exam findings as obtained by others. I have seen and examined this patient. I have discussed the case and the management of this patient's care with the Resident/Fellow, if applicable. I also have reviewed and agree with the assessment and plan as stated above and agree with all of its relevant components. Milton Figueroa MD documented in this encounter [facility] 06-12-2023 History of Presen t illness Narrative Assessment and Plan: 1. Epiretinal membrane (ERM) of right eye - OCT MACULA CIRRUS OU (BOTH EYES) -Significant and bothersome visual distortions. -Consult with Retina Service, Dr. Figueroa, on 02/12/2023. -Keep scheduled follow up appt with Dr. Figueroa on 06/18/2023. -Please call the office with decreased vision or increased eye pain. 2. Choroidal nevus, left -Low risk for choroidal melanoma. -Observe. 3. Nevus of conjunctiva, right -Stable / Observe. 4. Iris nevus, right -Stable / Observe. 5. Retinal tear, right -S/P Retinopexy 05/21/2022. 6. Pseudophakia of both eyes -Stable / Observe. Wellington Garcia, OD I have reviewed, confirmed, and edited as necessary the relevant ophthalmic history, review of systems, allergies, patient history, and ophthalmological examination findings as obtained by the ophthalmic technical staff. I have seen and examined Kylie Burnett. I have discussed the examination findings, diagnosis, and treatment options with Kylie Mckenzie Lex and/or her family. I have also reviewed and agree with the assessment and plan as stated above and agree with all its relevant components. I gave the patient the opportunity to ask questions about the examination findings, diagnosis, and treatment options. documented in this encounter [facility] 06-12-2023 Instructions Wellington Garcia, OD - 06/12/2023 10:43 AM EDT Images from the original note were not included. Please call the office immediately if you notice flashes of light, a sudden increase in floaters, or a sudden change in vision. Please call the office with decreased vision or increased eye pain. documented in this encounter [facility] 02-12-2023 Instructions Milton Figueroa MD - 02/12/2023 11:26 AM EDT Images from the original note were not included. documented in this encounter [facility] 02-12-2023 History of Presen t illness Narrative Previously seen with Dr. Dumont Epiretinal membrane, right eye - significant distortion in VA but stable from prior on OCT - likely contributing to vision loss - notices that the central area is distorted - more bothered by significant floaters - long discussion regarding r/b/a/c of surgery vs observation - patient would like to think about it - follow up 4 months Pseudophakia, both eyes - s/p CE/IOL OD 11/19/22 and OS 08/19/22 (Dr. Beckford) Retinal tear, right eye - s/p laser Retinopexy 05/21/2022 Iris nevus, right eye Nevus of conjunctiva, right eye - stable, observe Choroidal Nevus, left eye - I discussed the diagnosis of a choroidal nevus, the known biology, and the association with progression to uveal melanoma including the known clinical factors for progression to melanoma. - This lesion is felt to be of low risk, observe I have confirmed and edited as necessary the relevant ophthalmic history, ROS, and the neuro exam findings as obtained by others. I have seen and examined this patient. I have discussed the case and the management of this patient's care with the Resident/Fellow, if applicable. I also have reviewed and agree with the assessment and plan as stated above and agree with all of its relevant components. Milton Figueroa MD documented in this encounter [facility] 12-11-2022 History of Presen t illness Narrative Assessment and Plan: 1. Pseudophakia of both eyes -Right eye 11/19/2022, Dr. Beckford. -Left eye 08/19/2022, Dr. Beckford. -Blurred vision Right eye secondary to Epiretinal membrane. -Continue Prednisolone and Ketorolac twice a day Right eye until 12/17/2022. -Please call the office with decreased vision or increased eye pain. -Return in six months. 2. Epiretinal membrane (ERM) of right eye - OCT MACULA CIRRUS OU (BOTH EYES) -Visually significant Epiretinal membrane Right eye. -Per Dr. Dumont: -prominent retina striae -likely contributing to vision loss -ok to have cataract surgery first but would likely need Pars plana vitrectomy (PPV)/Membrane peel in the future -Consult Retina Service at [facility] for Evaluation. 3. Retinal tear, right -S/P Retinopexy 05/21/2022. 4. Iris nevus, right -Stable / Observe. 5. Nevus of conjunctiva, right Stable / Observe. 6. Refractive error -Glasses Rx given today. Wellington Garcia, MANDEEP I have reviewed, confirmed, and edited as necessary the relevant ophthalmic history, review of systems, allergies, patient history, and ophthalmological examination findings as obtained by the ophthalmic technical staff. I have seen and examined Kylie Burnett. I have discussed the examination findings, diagnosis, and treatment options with Kylie Burnett and/or her family. I have also reviewed and agree with the assessment and plan as stated above and agree with all its relevant components. I gave the patient the opportunity to ask questions about the examination findings, diagnosis, and treatment options. documented in this encounter [facility] 12-11-2022 Instructions Wellington Garcia, OD - 12/11/2022 9:58 AM EDT Images from the original note were not included. Prednisolone and Ketorolac twice a day Right eye until 12/17/2022. Please call the office with decreased vision or increased eye pain. documented in this encounter [facility] 12-03-2022 Miscellaneous Notes Received refill request from patient for Ketorolac. Order pending if appropriate, thank you Edna Grove December 03, 2022 3:47 PM Medication(s) requested: Ketorolac Amount (30 or 90 day supply?): Post surgery Pharmacy information: [id number] - [place] [address] - [id number] - [phone] Need today? Yes Prescribing physician: LOLA documented in this encounter [facility] 11-20-2022 Instructions Patricia Beckford MD - 11/20/2022 1:19 PM EST Vigamox right eye four times a day. Pred acetate1% right eye four times a day. Ketorolac right eye four times a day. Shield right eye at bedtime. Call if redness, pain or change in vision occurs. AFTER ONE WEEK right eye: Discontinue Vigamox drop. Continue Prednisone acetate 1% right eye four times a day x one week then decrease to twice a day x two weeks then discontinue. Continue Ketorolac right eye four times a day x one week then twice a day x two weeks then discontinue . Discontinue Shield right eye. 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 Plan: RIGHT EYE: Vigamox right eye four times a day. Pred acetate1% right eye four times a day. Ketorolac right eye four times a day. Shield right eye at bedtime. Patient to call if redness, pain or change in vision occurs. 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 Plan: Signs and symptoms of worsening floaters discussed. Patient instructed to call if changes occur. (D22.30) 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 Comment: Quiescent. Plan: Monitor Per Dr. Vazquez: - Flat, no intrinsic feeder vessels on iris - Slate solomon pigmentation inferonasal on sclera - OCT consistent with nevus (D31.01) Nevus of conjunctiva, right Comment: Quiescent Plan: Monitor (H52.13) Myopia, bilateral Comment: Stable Plan: Do not recommend Manifest refraction update yet. (H02.831, H02.834) Dermatochalasis of both upper eyelids Comment: Discussed stable on exam. Plan: Reviewed possible worsening post Cataract extraction/intraocular lens. Follow up for one week post op check right eye. I have confirmed and edited as necessary the relevant ophthalmic history, ROS, and the neuro exam findings as obtained by others. I have seen and examined this patient. I have discussed the case and the management of this patient's care with the Resident/Fellow, if applicable. I also have reviewed and agree with the assessment and plan as stated above and agree with all of its relevant components. Patricia Beckford MD November 20, 2022 1:14 PM documented in this encounter [facility] 09-26-2022 Miscellaneous Notes Called pat back to touch base on where she is at now after surgery was cancelled in Aug due to her having bronchitis, upper resp infection and etc. Patient was under commission and could not have surgery. Pat said she is well again to schedule in near future. documented in this encounter [facility] 09-25-2022 Miscellaneous Notes Patient left message in surgery scheduling: Calling to reschedule previously cancelled cataract surgery with Dr. Beckford from 09/17/22. Sending to Horace to call patient. documented in this encounter [facility] 09-11-2022 Miscellaneous Notes Patient called in cancelling her surgery for 09/17/22 due to her having an upper respiratory infection. I will call patient next week to check on her status as this is her second surgery. Case cancelled out by Magaly Ba All related appts also cancelled out by Magaly Ba documented in this encounter [facility] 08-29-2022 History of Presen t illness Narrative Referred by Dr. Piper vazquez for retinal tear/ cat eval Retinal tear right eye -s/p retinopexy 05/21/22 2. Iris nevus right eye, choroidal nevus left eye -followed by Martinez vazquez 3. Posterior chamber intraocular lens (PCIOL) left eye -stable/monitor 4. Cataract right eye -has surgery scheduled with analy Epiretinal membrane right eye -prominent retina striae -likely contributing to vision loss -ok to have cataract surgery first but would likely need Pars plana vitrectomy (PPV)/Membrane peel in the future Plan: Tear is well lasered, there is a bridging vessel at risk for vitreous hemorrhage Explained this to patient Return with me in oct- if she is happy with cataract surgery right eye, then okay to cancel the appt and return annually I have confirmed and edited as necessary the relevant ophthalmic history, ROS, and the neuro exam findings as obtained by others. I have seen and examined this patient. I have discussed the case and the management of this patient's care with the Resident/Fellow, if applicable. I also have reviewed and agree with the assessment and plan as stated above and agree with all of its relevant components. Cm Dumont MD documented in this encounter [facility] 08-27-2022 History of Presen t illness Narrative Assessment and Plan: 1. Pseudophakia of left eye -08/19/2022, Dr. Beckford. -Doing well. -Use post-operative eyedrops per Dr. Beckford instructions. -Please call the office with decreased vision or increased eye pain. -Follow-up as scheduled. Wellington Garcia, MANDEEP I have reviewed, confirmed, and edited as necessary the relevant ophthalmic history, review of systems, allergies, patient history, and ophthalmological examination findings as obtained by the ophthalmic technical staff. I have seen and examined Kylie Burnett. I have discussed the examination findings, diagnosis, and treatment options with Kylie Burnett and/or her family. I have also reviewed and agree with the assessment and plan as stated above and agree with all its relevant components. I gave the patient the opportunity to ask questions about the examination findings, diagnosis, and treatment options. documented in this encounter [facility] 08-27-2022 Instructions Wellington Garcia OD - 08/27/2022 11:15 AM EST Use eyedrops per Dr. Beckford Instructions. Please call the office with decreased vision or increased eye pain. documented in this encounter [facility] 08-20-2022 Instructions Patricia Beckford MD - 08/20/2022 2:01 PM EST Use Vigamox left eye four times a day. Use Pred acetate 1% left eye four times a day. Use Ketorolac left eye four times a day. Wear Shield left eye at bedtime. Call if redness pain or change in vision occurs. Starting 08/27/2022 Discontinue Vigamox drop. Continue Prednisone acetate 1% left eye four times a day x one week then decrease to twice a day x two weeks then discontinue. Continue Ketorolac left eye four times a day x one week then twice a day x two weeks then discontinue . Discontinue Shield left eye. Pre-Op Instructions for patients of Dr. Patricia Beckford 2 days prior to surgery start: Moxifloxacin- use one drop four times each day in operative eye Ketorolac - use one drop four times each day in operative eye You may use the drops in any order, but close your eye for 5 minutes after each drop. Continue to use any previous eye drops unless instructed otherwise. Day of Surgery: Prednisolone acetate - Do not use until after surgery. You will be given instructions for use. Do not eat or drink anything 8 hours prior to procedure time. Take all of your morning medication with only enough water to swallow them unless instructed otherwise by Dr. Beckford or your Primary Care physician. Get one drop of Moxifloxacin, and Ketorolac in the operative eye prior to arriving at the surgery center. After your surgery: You may remove your shield once you are home, but you must place it back over your eye in the evening and anytime before you go to sleep. No heavy lifting or bending from the waist. Limit your activity. Avoid bumping or rubbing the operative eye. You will be given instructions in the surgery center about starting the eye drops after surgery. 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 Plan: LEFT EYE: Use Vigamox left eye four times a day. Use Pred acetate 1% left eye four times a day. Use Ketorolac left eye four times a day. Patient to wear the shield left eye at bedtime. Patient to call if redness pain or change in vision occurs. RIGHT EYE: Scheduled for Cataract extraction/intraocular lens right eye 09/17/22. 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 Plan: Signs and symptoms of worsening floaters discussed. Patient instructed to call if changes occur. (D22.30) Damian nevus Comment: Quiescent. Plan: Monitor Per Dr. Vazquez: - Flat, no intrinsic feeder vessels on iris - Slate solomon pigmentation inferonasal on sclera - OCT consistent with nevus (D31.01) Nevus of conjunctiva, right Comment: Quiescent Plan: Monitor (H52.13) Myopia, bilateral Comment: Stable Plan: Do not recommend Manifest refraction update if scheduling Cataract extraction/IOL. (H02.831, H02.834) Dermatochalasis of both upper eyelids Comment: Discussed stable on exam. Plan: Reviewed possible worsening post Cataract extraction/intraocular lens. Follow up for one week post op check for Manifest refraction left eye. I have confirmed and edited as necessary the relevant ophthalmic history, ROS, and the neuro exam findings as obtained by others. I have seen and examined this patient. I have discussed the case and the management of this patient's care with the Resident/Fellow, if applicable. I also have reviewed and agree with the assessment and plan as stated above and agree with all of its relevant components. Patricia Beckford MD August 20, 2022 2:00 PM documented in this encounter [facility] 08-15-2022 Miscellaneous Notes Attempted to contact patient to inform to arrive at [address] [place] [address], [facility] [address] at 09:00 am for 08/19/22 surgery with Patricia Beckford MD, to refrain from eating or drinking for 8 hours prior to arrival for surgery, and to begin the eyedrops in the left eye on 08/17/22. Left message on machine to call with any questions or concerns. documented in this encounter [facility] 08-05-2022 Miscellaneous Notes INTRAOCULAR LENS ORDER ATTN: [facility] PATIENTS NAME: Kylie Burnett SURGERY DATE: 08/19/2022 EYE: OS SURGEON: Patricia Beckford MD LENS: [employer] OWNER: Thien MODEL: [id number] POWER: + 22.0 ADDITIONAL NOTES: documented in this encounter [facility] 08-02-2022 Instructions Patricia Beckford MD - 08/02/2022 12:14 PM EDT Pre-Op Instructions for patients of Dr. Patricia Beckford 2 days prior to surgery start: Moxifloxacin- use one drop four times each day in operative eye Ketorolac - use one drop four times each day in operative eye You may use the drops in any order, but close your eye for 5 minutes after each drop. Continue to use any previous eye drops unless instructed otherwise. Day of Surgery: Prednisolone acetate - Do not use until after surgery. You will be given instructions for use. Do not eat or drink anything 8 hours prior to procedure time. Take all of your morning medication with only enough water to swallow them unless instructed otherwise by Dr. Beckford or your Primary Care physician. Get one drop of Moxifloxacin, and Ketorolac in the operative eye prior to arriving at the surgery center. After your surgery: You may remove your shield once you are home, but you must place it back over your eye in the evening and anytime before you go to sleep. No heavy lifting or bending from the waist. Limit your activity. Avoid bumping or rubbing the operative eye. You will be given instructions in the surgery center about starting the three eyedrops after surgery. EYEDROPS MAY VARY DUE TO ALLERGY CONTRAINDICATIONS documented in this encounter [facility] 08-02-2022 History of Presen t illness Narrative (H25.813) Combined forms of age-related cataract of both eyes (primary encounter diagnosis) Comment: Discussed visually significant both eyes. Plan: Options reviewed including observation vs Cataract extraction/IOL both eyes. Patient opts for Cataract extraction/intraocular lens left eye first. Cataract Presurgical Documentation Cataract: Left eye (OS) then Right eye (OD) Current Visual Acuity Right Eye Distance CC 20/100 Left Eye Distance CC 20/80 Glare Testing: Visual Function: Kylie Burnett states that the decline in vision from the cataract impedes her abilities as listed in the HPI, as well as other activities of daily living. Kylie Burnett has confirmed that she is no longer able to function adequately on a day-to-day basis because of her current visual condition. Further, it is my medical opinion that the cataract is the primary cause, or at least a significantly contributory cause of her visual dysfunction. With uncomplicated cataract surgery and lens implantation, it is my expectation that her visual function and quality of life will improve, significantly. The risks, benefits, alternatives, personnel and complications of cataract surgery with lens implantation were discussed with Kylie Burnett in detail. she appeared to understand and asked that I proceed with plans for surgery. 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 Plan: Signs and symptoms of worsening floaters discussed. Patient instructed to call if changes occur. (D22.30) 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 Comment: Quiescent. Plan: Monitor Per Dr. Vazquez: - Flat, no intrinsic feeder vessels on iris - Slate solomon pigmentation inferonasal on sclera - OCT consistent with nevus (D31.01) Nevus of conjunctiva, right Comment: Quiescent Plan: Monitor (H52.13) Myopia, bilateral Comment: Stable Plan: Do not recommend Manifest refraction update if scheduling Cataract extraction/IOL. (H02.831, H02.834) Dermatochalasis of both upper eyelids Comment: Discussed stable on exam. Plan: Reviewed possible worsening post Cataract extraction/intraocular lens. Follow up for Cataract extraction/intraocular lens left eye Target: -1.00 to -1.25 (-2.50 for right eye.) Possible trypan blue. Possible Maluygin ring. Do not recommend premium services. I have confirmed and edited as necessary the relevant ophthalmic history, ROS, and the neuro exam findings as obtained by others. I have seen and examined this patient. I have discussed the case and the management of this patient's care with the Resident/Fellow, if applicable. I also have reviewed and agree with the assessment and plan as stated above and agree with all of its relevant components. Patricia Beckford MD August 02, 2022 11:55 AM documented in this encounter [facility] 08-01-2022 Miscellaneous Notes Left voicemail to remind patient of appointment in our [place] office at [address] [place] [address], [address], on 08/02/22 at 10:00 a.m. Advised that contact lens wearers must be out of contacts for at least two weeks before this appointment and to call back at [phone] to let us know when scheduled with primary care for the pre op physical exam. documented in this encounter [facility] 05-29-2022 History of Presen t illness Narrative Referred by Dr. Piper vazquez for retinal tear/ cat eval Retinal tear right eye -s/p retinopexy 05/21/22 2. Iris nevus right eye, choroidal nevus left eye -followed by Martinez vazquez 3. Cataracts both eyes -followed by Dr. Beckford -okay to proceed with surgery 4. Epiretinal membrane right eye -prominent retina striae -likely contributing to vision loss -ok to have cataract surgery first but would likely need Pars plana vitrectomy (PPV)/Membrane peel in the future Plan: Tear is well lasered, there is a bridging vessel at risk for vitreous hemorrhage Explained this to patient Return in 3 mo to monitor tear and Epiretinal membrane right eye Ok to proceed with cataract surgery Note to Dr. Thompson I have confirmed and edited as necessary the relevant ophthalmic history, ROS, and the neuro exam findings as obtained by others. I have seen and examined this patient. I have discussed the case and the management of this patient's care with the Resident/Fellow, if applicable. I also have reviewed and agree with the assessment and plan as stated above and agree with all of its relevant components. Cm Dumont MD documented in this encounter [facility] 05-22-2022 Miscellaneous Notes Patient's surgery for 08/07/[address] Dr[address] Beckford due to patient having a retinal tear. Dr. Beckford will determine when the patient can be rescheduled for cataract surgery. Case has been cancelled out by Magaly Ba documented in this encounter [facility] 05-21-2022 History of Presen t illness Narrative 71 y/o female - referred by Dr Patricia Beckford (F Major) for evaluation of conjunctival nevus and choroidal nevus, in the right eye and choroidal nevus in the lefte eye - known to have iris and choroidal nevi since childhood Nevus of Damian, OD (sectoral) - Flat, no intrinsic feeder vessels on iris - Slate solomon pigmentation inferonasal on sclera - OCT consistent with nevus Choroidal Nevus, OS : small : non suspicious - Flat, (-) SRF, (-) [place], (+) [place] - q 1 year : locally Retinal Tear, OD - Located at 1pm in periphery, patient is David (+) - Not having any active symptoms, some occasional flashes on head movement - Retina fellow job honer notified, will need retinopexy today - Follow up with retina service 1 week - Hold Cataract surgery until Retina clears for surgery I have confirmed and edited as necessary the relevant ophthalmic history, ROS, and the neuro exam findings as obtained by others. I have seen and examined this patient. I have discussed the case and the management of this patient's care with the Resident/Fellow, if applicable. I also have reviewed and agree with the assessment and plan as stated above and agree with all of its relevant components. Martinez Vazquez MD May 21, 2022 3:31 PM documented in this encounter [facility] 04-19-2022 Instructions Patricia Beckford MD - 04/19/2022 10:49 AM EDT Images from the original note were not included. 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 Plan: Options reviewed including observation vs Cataract extraction/IOL both eyes. Patient opts for Cataract extraction/IOL right eye first. Cataract Presurgical Documentation Cataract: Right eye (OD) then Left eye (OS) Current Visual Acuity Right Eye Distance CC 20/80 Left Eye Distance CC 20/70 Best Corrected Vision Right Eye 20/70 Best Corrected Vision Left Eye 20/70 Glare Testing: N/A Visual Function: Kylie Burnett states that the decline in vision from the cataract impedes her abilities as listed in the HPI, as well as other activities of daily living. Kylie Burnett has confirmed that she is no longer able to function adequately on a day-to-day basis because of her current visual condition. Further, it is my medical opinion that the cataract is the primary cause, or at least a significantly contributory cause of her visual dysfunction. With uncomplicated cataract surgery and lens implantation, it is my expectation that her visual function and quality of life will improve, significantly. The risks, benefits, alternatives, personnel and complications of cataract surgery with lens implantation were discussed with Kylie Burnett in detail. she appeared to understand and asked that I proceed with plans for surgery. 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 Plan: FUNDUS PHOTOS OU (BOTH EYES) from 04/15/2022 reviewed with patient KATHERINE. 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 Plan: Signs and symptoms of worsening floaters discussed. Patient instructed to call if changes occur. (H52.13) Myopia, bilateral Comment: Discussed minimal change in Manifest refraction. Plan: Do not recommend Manifest refraction update if scheduling Cataract extraction/IOL. (H02.831, H02.834) Dermatochalasis of both upper eyelids Comment: Discussed findings on exam. Plan: Reviewed possible worsening post Cataract extraction/IOL both eyes. Follow up for 1. Evaluate nevi with Dr. Vazquez on 05/21/2022. 2, If cleared, Cataract extraction/IOL right eye Target: [facility] vs -2.25 (consider computer set up left eye) Possible trypan blue. Possible Maluygin ring. Patient declines premium lenses. I have confirmed and edited as necessary the relevant ophthalmic history, ROS, and the neuro exam findings as obtained by others. I have seen and examined this patient. I have discussed the case and the management of this patient's care with the Resident/Fellow, if applicable. I also have reviewed and agree with the assessment and plan as stated above and agree with all of its relevant components. 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 Signs and symptoms of Retinal detachment Carefully discussed and patient to follow up if any of these occur Posterior vitreous detachment Right eye not new. Has some pigmented cell Right eye But no Retinal tear or Retinal detachment . Seeing Elissa for cat eval in near future thus will have him reevaluate for this Patient saw reymundo recently and possible eval for retinal nevi and pigmented lesions mentioned. Will d/w with Reymundo as to whether this occurred. Patient to keep fransisco appt and fu if new floaters or loss vision. I have confirmed and edited as necessary the relevant ophthalmic history, ROS, and the neuro exam findings as obtained by others. I have seen and examined Kylie Burnett. I have discussed the case and the management of this patient's care with the Resident/Fellow, if applicable. I also have reviewed and agree with the assessment and plan as stated above and agree with all of its relevant components. Carolina Ledezma MD documented in this encounter [facility] 04-09-2022 Miscellaneous Notes Copied from Dr. Joshi routing note. She's scheduled to see Dr. Mobley in a couople of days. Can take her off my scheduld Patient is on his schedule on 04/15/2021 for a cataract eval with either Dr. Joshi, Dr. Dove or Dr. Beckford. Mikaela Smith RN April 09, 2022 4:00 PM Spoke with patient. States that the floaters that she's having a some what different than the last time she had floates. States appear more fuzzy at the edges with a line through them. States the number of floaters is the same. Denies flashes or cut in visual field . States overall vision in not as good both eyes as when seen last. States both eyes are sensitive to light. Wears sunglasses in the house. States both eyes water on and off which is new. Denies pain or redness. Feels comfortable waiting to be seen until . Discussed signs and symptoms of retinal detachment. Patient to call for any worsening of symptoms or loss of vision. Mikaela Smith RN April 08, 2022 3:31 PM Patient states she started having floaters this morning. States she has not had them in months. States there is no new flashes of light since last visit. States vision is blurry but no loss of vision. States eye feels different since last appointment. Patient is coming in for visual field , I scheduled with on same day. Is this date okay? documented in this encounter [facility] 04-03-2022 Instructions Steven Dwyer Jr., MD - 04/03/2022 4:07 PM EDT REMEMBER THE 3 F's Floaters-- Monitor for new or increase in number of floaters Flashes-- Looking for increase in number or frequency of flashes. May appear as arcs of light, light amador or lightning bolts in the periphery. Field of vision-- Cuts in vision or appearance of having a curtain or veil covering or blocking your vision. The first two symptoms are URGENT and should be reported to the doctor within 24 hours of onset. The third, cut in visual field, is EMERGENT and needs acted on immediately. Either call our office to report or go to a Main Hospital Emergency Room immediately. ( Do not go to an Urgent Care or [facility] Emergency facility) If any of these symptoms occur when you are out of town or the country go to a main hospital emergency room for treatment where you are. Do not wait to return home as most times getting treatment fast can make a difference in the amount of vision lost or returned. . 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 Discussed 3 F's with patient. Patient agrees to call immediately for any cut or change in visual field. Call within 24 hours for new floaters or increase in flashes. [facility] if out of town or unable to come in to office. H43.811 PVD (posterior vitreous detachment), right Comment: Stable. Discussed with patient. 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 I have seen and examined Kylie Burnett. I have discussed the case and the management of this patient's care with the Resident/Fellow, if applicable. I also have reviewed and agree with the assessment and plan as stated above and agree with all of its relevant components. Return if symptoms worsen or fail to improve, for Needs appointment for Cataract eval Dr. Joshi, YAMILEX, or Analy. documented in this encounter [facility] 01-24-2022 Miscellaneous Notes January 24, 2022 PID: [id number] Kylie Burnett [address] [place] [address] Dear Ms. Burnett, We are pleased to inform you that the results of your recent breast imaging exam on 01/24/2022 are normal. Early detection of cancer is very important. We also understand recommendations regarding breast cancer screening are controversial. Please discuss with your primary care provider which strategy is best for you and whether a mammogram is right for you. Your imaging studies and report will be kept on file at [facility] as part of your permanent medical record and are available for your continuing care. Thank you for allowing us to help in meeting your health care needs. Sincerely, Dr. Fernandes Interpreting Radiologist [facility] (Normal over 40) documented in this encounter [facility] 01-24-2022 History of Presen t illness Narrative Radiology Service Progress Note PATIENT NAME: Kylie Burnett DATE OF SERVICE: January 24, 2022 TIME: 10:26 AM PATIENT IDENTITY VERIFICATION COMPLETED USING TWO (2) IDENTIFIERS: Name and Date of confirmed by patient verbally. FALL SCREENING: Has the patient had 2 falls in the last year or 1 fall with injury or currently using an Ambulatory Assistive Device (Walker, Cane, Wheelchair, Crutches, etc.)? No PATIENT GENDER DATA: Female. status: : No status: NO. 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, both eyes [facility] Diagnosis Lattice degeneration of retina, 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, right [facility] Diagnosis Subjective visual disturbance- Primary Subjective visual disturbance, unspecified Nevus of conjunctiva, right Iris nevus, right Choroidal nevus, left Lattice degeneration of retina, bilateral Lattice degeneration of peripheral retina PVD (posterior vitreous detachment), right Nuclear sclerotic cataract of both eyes Senile nuclear sclerosis Cortical age-related cataract, both eyes [facility] Diagnosis Combined forms of age-related cataract of both eyes- Primary Other and combined forms of senile cataract Nevus of conjunctiva, right Iris nevus, right Choroidal nevus, left PVD (posterior vitreous detachment), right Vitreous floater, bilateral Lattice degeneration of retina, bilateral Lattice degeneration of peripheral retina Myopia, bilateral Myopia Dermatochalasis of both upper eyelids [facility] Choroidal nevus, left- Primary Iris nevus, 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 Horseshoe retinal tear of right eye Horseshoe tear of retina without detachment Combined forms of age-related cataract of right eye Other and combined forms of senile cataract Combined forms of age-related cataract of left eye Other and combined forms of senile cataract [facility] Diagnosis Choroidal nevus, left- Primary Iris nevus, right Horseshoe retinal tear of right eye Horseshoe tear of retina without detachment Combined forms of age-related cataract of both eyes Other and combined forms of senile cataract Combined forms of age-related cataract of left eye Other and combined forms of senile cataract [facility] Diagnosis Combined form of senile cataract of both eyes- Primary Combined forms of age-related cataract of left eye Other and combined forms of senile cataract [facility] Diagnosis Combined forms of age-related cataract of both eyes- Primary Other and combined forms of senile cataract Choroidal nevus, left Iris nevus, right Horseshoe retinal tear of right eye Horseshoe tear of retina without detachment PVD (posterior vitreous detachment), right 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 Congenital pigmentary anomaly of skin Nevus of conjunctiva, right Myopia, bilateral Myopia Dermatochalasis of both upper eyelids Combined forms of age-related cataract of left eye Other and combined forms of senile cataract Nuclear sclerosis of right eye [facility] Diagnosis Pseudophakia, left eye- Primary Lens replaced by other means Combined forms of age-related cataract of both eyes Other and combined forms of senile cataract Nuclear sclerosis of right eye [facility]* Diagnosis Pseudophakia of left eye- Primary Lens replaced by other means Nuclear sclerosis of right eye [facility] Diagnosis Epiretinal membrane (ERM) of right eye- Primary Nuclear sclerosis of right eye [facility] Diagnosis Combined form of senile cataract of right eye- Primary Combined form of senile cataract of right eye Nuclear sclerosis of right eye [facility] Diagnosis Onset Date Resolution Status Acquired cataract acute Vision abnormalities acute Bronchitis acute Sinusitis, acute acute Anxiety acute Breast cancer screening by mammogram acute Vision abnormalities acute Hypertension chronic [facility] Work Phone: Evaluation note* Diagnosis Pseudophakia, both eyes- Primary Lens replaced by other means Combined forms of age-related cataract of both eyes Other and combined forms of senile cataract [facility] Diagnosis Pseudophakia of both eyes- Primary Lens replaced by other means Epiretinal membrane (ERM) of right eye Retinal tear, right Iris nevus, right Nevus of conjunctiva, right Refractive error Unspecified disorder of refraction and accommodation [facility]* Diagnosis Epiretinal membrane (ERM) of right eye- Primary Pseudophakia of both eyes Lens replaced by other means Retinal tear, right Iris nevus, right Nevus of conjunctiva, right Choroidal nevus, left [facility] Diagnosis Epiretinal membrane (ERM) of right eye- Primary Choroidal nevus, left Nevus of conjunctiva, right Iris nevus, right Retinal tear, right Pseudophakia of both eyes Lens replaced by other means [facility] Diagnosis Epiretinal membrane (ERM) of right eye Pseudophakia of both eyes Lens replaced by other means Retinal tear, right Iris nevus, right Nevus of conjunctiva, right Choroidal nevus, left [facility] Diagnosis Epiretinal membrane (ERM) of right eye Pseudophakia of both eyes Lens replaced by other means Retinal tear, right Iris nevus, right Nevus of conjunctiva, right Choroidal nevus, left [facility] Diagnosis Myopia, bilateral- Primary Myopia Regular astigmatism of both eyes Regular astigmatism Presbyopia [facility] Diagnosis Retinal detachment of left eye with single break- Primary Recent retinal detachment, partial, with single defect Lattice degeneration of retina, bilateral Lattice degeneration of peripheral retina [facility] Diagnosis Postoperative state- Primary Other postprocedural status Retinal detachment of left eye with multiple breaks Recent retinal detachment, partial, with multiple defects [facility] Diagnosis Postoperative state Other postprocedural status Retinal detachment of left eye with multiple breaks Recent retinal detachment, partial, with multiple defects [facility] Diagnosis Retinal detachment of left eye with multiple breaks- Primary Recent retinal detachment, partial, with multiple defects [facility] Diagnosis Retinal detachment of left eye with multiple breaks- Primary Recent retinal detachment, partial, with multiple defects Epiretinal membrane (ERM) of right eye [facility] Diagnosis Retinal detachment of left eye with multiple breaks- Primary Recent retinal detachment, partial, with multiple defects [facility] Diagnosis Refractive error- Primary Unspecified disorder of refraction and accommodation Presbyopia [facility] Diagnosis Epiretinal membrane (ERM) of right eye- Primary documented in this encounter [facility] Summary Purpose Family History No Family History Records Found Relationship Condition Age at Onset Recorded Date/T berenice brother Diabetes mellitus Unknown Chronic obstructive pulmonary disease Unk nown sister Vascular disorder Unknown father Cardiac disease Unknown mother Disorder of thyroid Unknown Myocardial infarction Unknown Malignant neoplasm Unknown Lupus Unknown Eczema Unknown Advance Directives No Advanced Directives Records FoundDocuments on File Type Date Recorded 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 In the event of a Fluress shortage, administer 1 drop of Schuyler-Fluor into both eyes as directed for applanation tonometry., [facility] MED ORDERS Given 04/03/2022 3:30 PM EDT 1 Drop PHENYLephrine 2.5 % 1 Drop (AK-DILATE, EFRAÍN-SYNEPHRINE) 1 Drop, BOTH EYES, DIRECTED, Starting on Fri04/03/22 at 1530, Until [place] 04/04/22 at 0329, Administer for dilation PROTECT FROM LIGHT, [facility] CLINIC MED ORDERS Given 04/03/2022 3:30 PM EDT 1 Drop tropicamide 1 % 1 Drop (MYDRIACYL) 1 Drop, BOTH EYES, DIRECTED, Starting on Fri04/03/22 at 1530, Until Fri04/04/22 at 0329, Administer for dilation, OPHT CLINIC MED ORDERS Given 04/03/2022 3:30 PM EDT 1 Drop Inactive Administered Medications - up to 3 most recent administrations Medication Order MAR Action Action Date Dose Rate Site fluorescein-benoxinate 0.25-0.4 % 1 Drop (FLURESS) 1 Drop, RIGHT EYE, DIRECTED, Starting on Fri04/11/22 at 1430, Until Fri04/12/22 at 0229, Administer for applanation tonometry. In the event of a Fluress shortage, administer Schuyler-Fluor 1 drop into the right eye as directed for applanation tonometry, [facility] Given 04/11/2022 2:30 PM EDT 1 Drop PHENYLephrine 2.5 % 1 Drop (AK-DILATE, EFRAÍN-SYNEPHRINE) 1 Drop, RIGHT EYE, DIRECTED, Starting on Fri04/11/22 at 1430, Until Fri04/12/22 at 0229, Administer for dilation PROTECT FROM LIGHT, [facility] ORD[facility] Given 04/11/2022 2:30 PM EDT 1 Drop tropicamide 1 % 1 Drop (MYDRIACYL) 1 Drop, RIGHT EYE, DIRECTED, Starting on Fri04/11/22 at 1430, Until Fri04/12/22 at 0229, Administer for dilation, [facility] ORD[facility] Given 04/11/2022 2:30 PM EDT 1 Drop Active Administered Medications - up to 3 most recent administrations Medication Order MAR Action Action Date Dose Rate Site fluorescein-benoxinate 0.25-0.4 % 1 Drop (FLURESS) 1 Drop, BOTH EYES, DIRECTED, Starting on Fri04/19/22 at 1000, Until Fri04/19/22 at 2159, Administer for applanation tonometry. In the event of a Fluress shortage, administer Schuyler-Fluor 1 drop into both eyes as directed for applanation tonometry, [facility] ORD[facility] Given 04/19/2022 10:00 AM EDT 1 Drop PHENYLephrine 2.5 % 1 Drop (AK-DILATE, EFRAÍN-SYNEPHRINE) 1 Drop, BOTH EYES, DIRECTED, Starting on Fri04/19/22 at 1000, Until Fri04/19/22 at 215, Administer for dilation PROTECT FROM LIGHT, [facility] ORD[facility] Given 04/19/2022 10:00 AM EDT 1 Drop proparacaine 0.5 % 1 Drop (ALCAINE) 1 Drop, BOTH EYES, DIRECTED, Starting on Fri04/19/22 at 1000, Until Fri04/19/22 at 2158, Administer for pneumo tonometry, tonopen tonometry, or pachymetry. In the event of a proparacaine shortage, administer tetracaine 0.5% ophthalmic drops 1 drop in the left eye as directed for pneumo tonometry, tonopen tonometry, or pachymetry, [facility] ORD[facility] Given 04/19/2022 10:00 AM EDT 1 Drop tropicamide 1 % 1 Drop (MYDRIACYL) 1 Drop, BOTH EYES, DIRECTED, Starting on Fri04/19/22 at 1000, Until Fri04/19/22 at 2158, Administer for dilation, [facility] ORD[facility] Given 04/19/2022 10:00 AM EDT 1 Drop Active Administered Medications - up to 3 most recent administrations Medication Order MAR Action Action Date Dose Rate Site PHENYLephrine 2.5 % 1 Drop (AK-DILATE, EFRAÍN-SYNEPHRINE) 1 Drop, BOTH EYES, DIRECTED, Starting on Fri05/30/22 at 0900, Until Fri05/30/22 at 2058, Administer for dilation PROTECT FROM LIGHT Given 05/30/2022 9:00 AM EDT 1 Drop proparacaine 0.5 % 1 Drop (ALCAINE) 1 Drop, BOTH EYES, DIRECTED, Starting on Fri05/30/22 at 0900, Until Fri05/30/22 at 2058, Administer for pneumo tonometry, tonopen tonometry, or pachymetry. In the event of a proparacaine shortage, administer tetracaine 0.5% ophthalmic drops 1 drop in the left eye as directed for pneumo tonometry, tonopen tonometry, or pachymetry Given 05/30/2022 9:00 AM EDT 1 Drop tropicamide 1 % 1 Drop (MYDRIACYL) 1 Drop, BOTH EYES, DIRECTED, Starting on Fri05/30/22 at 0900, Until Fri05/30/22 at 205, Administer for dilation Given 05/30/2022 9:00 AM EDT 1 Drop Active Administered Medications - up to 3 most recent administrations Medication Order MAR Action Action Date Dose Rate Site fluorescein-benoxinate 0.25-0.4 % 1 Drop (FLURESS) 1 Drop, BOTH EYES, DIRECTED, Starting on Fri08/02/22 at 1100, Until Fri08/02/22 at 2259, Administer for applanation tonometry. In the event of a Fluress shortage, administer Schuyler-Fluor 1 drop into both eyes as directed for applanation tonometry, [facility] Given 08/02/2022 10:48 AM EDT 1 Drop PHENYLephrine 2.5 % 1 Drop (AK-DILATE, EFRAÍN-SYNEPHRINE) 1 Drop, BOTH EYES, DIRECTED, Starting on Fri08/02/22 at 1100, Until Fri08/02/22 at 2259, Administer for dilation PROTECT FROM LIGHT, [facility] Given 08/02/2022 10:48 AM EDT 1 Drop proparacaine 0.5 % 1 Drop (ALCAINE) 1 Drop, BOTH EYES, DIRECTED, Starting on Fri08/02/22 at 1100, Until Fri08/02/22 at 2259, Administer for pneumo tonometry, tonopen tonometry, or pachymetry. In the event of a proparacaine shortage, administer tetracaine 0.5% ophthalmic drops 1 drop in the left eye as directed for pneumo tonometry, tonopen tonometry, or pachymetry, [facility] ORD[facility] Given 08/02/2022 10:48 AM EDT 1 Drop tropicamide 1 % 1 Drop (MYDRIACYL) 1 Drop, BOTH EYES, DIRECTED, Starting on Fri08/02/22 at 1100, Until Fri08/02/22 at 2259, Administer for dilation, [facility] ORD[facility] Given 08/02/2022 10:48 AM EDT 1 Drop Active Administered Medications - up to 3 most recent administrations Medication Order MAR Action Action Date Dose Rate Site fluorescein-benoxinate 0.25-0.4 % 1 Drop (FLURESS) 1 Drop, BOTH EYES, DIRECTED, Starting on Fri08/20/22 at 1330, Until Fri08/21/22 at 0129, Administer for applanation tonometry. In the event of a Fluress shortage, administer Ramona-Fluor 1 drop into both eyes as directed for applanation tonometry, [facility] Given 08/20/2022 1:30 PM EST 1 Drop Active Administered Medications - up to 3 most recent administrations Medication Order MAR Action Action Date Dose Rate Site fluorescein-benoxinate 0.25-0.4 % 1 Drop (FLURESS) 1 Drop, LEFT EYE, DIRECTED, Starting on Fri08/27/22 at 1130, Until Fri08/27/22 at 2329, Administer for applanation tonometry. In the event of a Fluress shortage, administer Schuyler-Fluor 1 drop into the left eye as directed for applanation tonometry, [facility] ORD[facility] Given 08/27/2022 11:10 AM EST 1 Drop Active Administered Medications - up to 3 most recent administrations Medication Order MAR Action Action Date Dose Rate Site PHENYLephrine 2.5 % 1 Drop (AK-DILATE, EFRAÍN-SYNEPHRINE) 1 Drop, BOTH EYES, DIRECTED, Starting on Fri08/29/22 at 1000, Until Fri08/29/22 at 215, Administer for dilation PROTECT FROM LIGHT Given 08/29/2022 10:00 AM EST 1 Drop proparacaine 0.5 % 1 Drop (ALCAINE) 1 Drop, BOTH EYES, DIRECTED, Starting on Fri08/29/22 at 1000, Until Fri08/29/22 at 215, Administer for pneumo tonometry, tonopen tonometry, or pachymetry. In the event of a proparacaine shortage, administer tetracaine 0.5% ophthalmic drops 1 drop in the left eye as directed for pneumo tonometry, tonopen tonometry, or pachymetry Given 08/29/2022 10:00 AM EST 1 Drop tropicamide 1 % 1 Drop (MYDRIACYL) 1 Drop, BOTH EYES, DIRECTED, Starting on Fri08/29/22 at 1000, Until Fri08/29/22 at 2159, Administer for dilation Given 08/29/2022 10:00 AM EST 1 Drop Active Administered Medications - up to 3 most recent administrations Medication Order MAR Action Action Date Dose Rate Site fluorescein-benoxinate 0.25-0.4 % 1 Drop (FLURESS) 1 Drop, BOTH EYES, DIRECTED, Starting on Fri11/20/22 at 1300, Until Fri11/21/22 at 0059, Administer for applanation tonometry. In the event of a Fluress shortage, administer Schuyler-Fluor 1 drop into both eyes as directed for applanation tonometry, [facility] Given 11/20/2022 1:00 PM EST 1 Drop Active Administered Medications - up to 3 most recent administrations Medication Order MAR Action Action Date Dose Rate Site fluorescein-benoxinate 0.25-0.4 % 1 Drop (FLURESS) 1 Drop, RIGHT EYE, DIRECTED, Starting on Fri12/11/22 at 0930, Until Fri12/11/22 at 2128, Administer for applanation tonometry. In the event of a Fluress shortage, administer Ramona-Fluor 1 drop into the right eye as directed for applanation tonometry, [facility] Given 12/11/2022 9:30 AM EDT 1 Drop PHENYLephrine 2.5 % 1 Drop (AK-DILATE) 1 Drop, RIGHT EYE, DIRECTED, Starting on Fri12/11/22 at 0930, Until Fri12/11/22 at 2128, Administer for dilation PROTECT FROM LIGHT, [facility] Given 12/11/2022 9:30 AM EDT 1 Drop tropicamide 1 % 1 Drop (MYDRIACYL) 1 Drop, RIGHT EYE, DIRECTED, Starting on Fri12/11/22 at 0930, Until Fri12/11/22 at 2128, Administer for dilation, [facility] Given 12/11/2022 9:30 AM EDT 1 Drop Active Administered Medications - up to 3 most recent administrations Medication Order MAR Action Action Date Dose Rate Site fluorescein-benoxinate 0.25-0.4 % 1 Drop (FLURESS) 1 Drop, BOTH EYES, DIRECTED, Starting on Fri02/12/23 at 1000, Until Fri02/12/23 at 2159, Administer for applanation tonometry. In the event of a Fluress shortage, administer Ramona-Fluor 1 drop into both eyes as directed for applanation tonometry, [facility] Given 02/12/2023 10:00 AM EDT 1 Drop PHENYLephrine 2.5 % 1 Drop (AK-DILATE, EFRAÍN-SYNEPHRINE) 1 Drop, BOTH EYES, DIRECTED, Starting on Fri02/12/23 at 1000, Until Fri02/12/23 at 215, Administer for dilation PROTECT FROM LIGHT, [facility] Given 02/12/2023 10:00 AM EDT 1 Drop proparacaine 0.5 % 1 Drop (ALCAINE) 1 Drop, BOTH EYES, DIRECTED, Starting on Fri02/12/23 at 1000, Until Fri02/12/23 at 215, Administer for pneumo tonometry, tonopen tonometry, or pachymetry. In the event of a proparacaine shortage, administer tetracaine 0.5% ophthalmic drops 1 drop in both eyes as directed for pneumo tonometry, tonopen tonometry, or pachymetry, [facility] Given 02/12/2023 10:00 AM EDT 1 Drop tropicamide 1 % 1 Drop (MYDRIACYL) 1 Drop, BOTH EYES, DIRECTED, Starting on Fri02/12/23 at 1000, Until Fri02/12/23 at 215, Administer for dilation, [facility] Given 02/12/2023 10:00 AM EDT 1 Drop Active Administered Medications - up to 3 most recent administrations Medication Order MAR Action Action Date Dose Rate Site fluorescein-benoxinate 0.25-0.4 % 1 Drop (FLURESS) 1 Drop, BOTH EYES, DIRECTED, Starting on Fri06/12/23 at 1030, Until Fri06/12/23 at 2229, Administer for applanation tonometry. In the event of a Fluress shortage, administer Ramona-Fluor 1 drop into both eyes as directed for applanation tonometry, [facility] ORD[facility] Given 06/12/2023 10:30 AM EDT 1 Drop PHENYLephrine 2.5 % 1 Drop (AK-DILATE, EFRAÍN-SYNEPHRINE) 1 Drop, BOTH EYES, DIRECTED, Starting on Fri06/12/23 at 1030, Until Fri06/12/23 at 2229, Administer for dilation PROTECT FROM LIGHT, [facility] Given 06/12/2023 10:30 AM EDT 1 Drop tropicamide 1 % 1 Drop (MYDRIACYL) 1 Drop, BOTH EYES, DIRECTED, Starting on Fri06/12/23 at 1030, Until Fri06/12/23 at 2229, Administer for dilation, [facility] Given 06/12/2023 10:30 AM EDT 1 Drop Active Administered Medications - up to 3 most recent administrations Medication Order MAR Action Action Date Dose Rate Site fluorescein-benoxinate 0.25-0.4 % 1 Drop (FLURESS) 1 Drop, BOTH EYES, DIRECTED, Starting on Fri06/18/23 at 1030, Until Fri06/18/23 at 222, Administer for applanation tonometry. In the event of a Fluress shortage, administer Ramona-Fluor 1 drop into both eyes as directed for applanation tonometry, [facility] ORD[facility] Given 06/18/2023 10:30 AM EDT 1 Drop PHENYLephrine 2.5 % 1 Drop (AK-DILATE, EFRAÍN-SYNEPHRINE) 1 Drop, BOTH EYES, DIRECTED, Starting on Fri06/18/23 at 1030, Until Fri06/18/23 at 2229, Administer for dilation PROTECT FROM LIGHT, [facility] ORD[facility] Given 06/18/2023 10:30 AM EDT 1 Drop tropicamide 1 % 1 Drop (MYDRIACYL) 1 Drop, BOTH EYES, DIRECTED, Starting on Fri06/18/23 at 1030, Until Fri06/18/23 at 222, Administer for dilation, [facility] ORD[facility] Given 06/18/2023 10:30 AM EDT 1 Drop Chief Complaint and Reason for Visit Chief Complaint Eye complaints Eye complaints/URI Eye complaints Reason for Visit Acquired cataract Vision abnormalities Bronchitis Sinusitis, acute Anxiety Breast cancer screening by mammogram Vision abnormalities Hypertension Additional Source Comments INFORMATION SOURCE (unrecogn ized section and content) DATE CREATED AUTHOR 04/12/2019 [facility] DATE CREATED AUTHOR AUTHOR'S ORGANIZ ATION 12/17/2023 [facility] DATE CREATED AUTHOR AUTHOR'S ORGANIZ ATION 12/04/2024 [facility] DATE CREATED AUTHOR AUTHOR'S ORGANIZ ATION 02/04/2025 [facility] Source Comments (unrecognize d section and content) In the event this informatio n is protected by the Federal Confidentiality of Alcohol and Drug Abuse Patient Records regulations: The Federal rules restrict any use of the information to criminally investigate or prosecute any alcohol or drug abuse patient.[facility] the event this information is protected by the Federal Confidentiality of Alcohol and Drug Abuse Patient Records regulations: The Federal rules restrict any use of the information to criminally investigate or prosecute any alcohol or drug abuse patient.[facility] the event this information is protected by the Federal Confidentiality of Alcohol and Drug Abuse Patient Records regulations: The Federal rules restrict any use of the information to criminally investigate or prosecute any alcohol or drug abuse patient.[facility] the event this information is protected by the Federal Confidentiality of Alcohol and Drug Abuse Patient Records regulations: The Federal rules restrict any use of the information to criminally investigate or prosecute any alcohol or drug abuse patient.[facility]In the event this information is protected by the Federal Confidentiality of Alcohol and Drug Abuse Patient Records regulations: The Federal rules restrict any use of the information to criminally investigate or prosecute any alcohol or drug abuse patient.[facility]In the event this information is protected by the Federal Confidentiality of Alcohol and Drug Abuse Patient Records regulations: The Federal rules restrict any use of the information to criminally investigate or prosecute any alcohol or drug abuse patient.[facility]In the event this information is protected by the Federal Confidentiality of Alcohol and Drug Abuse Patient Records regulations: The Federal rules restrict any use of the information to criminally investigate or prosecute any alcohol or drug abuse patient.[facility]In the event this information is protected by the Federal Confidentiality of Alcohol and Drug Abuse Patient Records regulations: The Federal rules restrict any use of the information to criminally investigate or prosecute any alcohol or drug abuse patient.[facility]In the event this information is protected by the Federal Confidentiality of Alcohol and Drug Abuse Patient Records regulations: The Federal rules restrict any use of the information to criminally investigate or prosecute any alcohol or drug abuse patient.[facility]In the event this information is protected by the Federal Confidentiality of Alcohol and Drug Abuse Patient Records regulations: The Federal rules restrict any use of the information to criminally investigate or prosecute any alcohol or drug abuse patient.[facility]In the event this information is protected by the Federal Confidentiality of Alcohol and Drug Abuse Patient Records regulations: The Federal rules restrict any use of the information to criminally investigate or prosecute any alcohol or drug abuse patient.[facility]In the event this information is protected by the Federal Confidentiality of Alcohol and Drug Abuse Patient Records regulations: The Federal rules restrict any use of the information to criminally investigate or prosecute any alcohol or drug abuse patient.[facility]In the event this information is protected by the Federal Confidentiality of Alcohol and Drug Abuse Patient Records regulations: The Federal rules restrict any use of the information to criminally investigate or prosecute any alcohol or drug abuse patient.[facility]In the event this information is protected by the Federal Confidentiality of Alcohol and Drug Abuse Patient Records regulations: The Federal rules restrict any use of the information to criminally investigate or prosecute any alcohol or drug abuse patient.[facility] HospitalIn the event this information is protected by the Federal Confidentiality of Alcohol and Drug Abuse Patient Records regulations: The Federal rules restrict any use of the information to criminally investigate or prosecute any alcohol or drug abuse patient.[facility] HospitalIn the event this information is protected by the Federal Confidentiality of Alcohol and Drug Abuse Patient Records regulations: The Federal rules restrict any use of the information to criminally investigate or prosecute any alcohol or drug abuse patient.[facility] HospitalIn the event this information is protected by the Federal Confidentiality of Alcohol and Drug Abuse Patient Records regulations: The Federal rules restrict any use of the information to criminally investigate or prosecute any alcohol or drug abuse patient.[facility] HospitalIn the event this information is protected by the Federal Confidentiality of Alcohol and Drug Abuse Patient Records regulations: The Federal rules restrict any use of the information to criminally investigate or prosecute any alcohol or drug abuse patient.[facility] HospitalIn the event this information is protected by the Federal Confidentiality of Alcohol and Drug Abuse Patient Records regulations: The Federal rules restrict any use of the information to criminally investigate or prosecute any alcohol or drug abuse patient.[facility] HospitalIn the event this information is protected by the Federal Confidentiality of Alcohol and Drug Abuse Patient Records regulations: The Federal rules restrict any use of the information to criminally investigate or prosecute any alcohol or drug abuse patient.[facility] HospitalIn the event this information is protected by the Federal Confidentiality of Alcohol and Drug Abuse Patient Records regulations: The Federal rules restrict any use of the information to criminally investigate or prosecute any alcohol or drug abuse patient.[facility] HospitalIn the event this information is protected by the Federal Confidentiality of Alcohol and Drug Abuse Patient Records regulations: The Federal rules restrict any use of the information to criminally investigate or prosecute any alcohol or drug abuse patient.[facility] HospitalIn the event this information is protected by the Federal Confidentiality of Alcohol and Drug Abuse Patient Records regulations: The Federal rules restrict any use of the information to criminally investigate or prosecute any alcohol or drug abuse patient.[facility] HospitalIn the event this information is protected by the Federal Confidentiality of Alcohol and Drug Abuse Patient Records regulations: The Federal rules restrict any use of the information to criminally investigate or prosecute any alcohol or drug abuse patient.[facility] HospitalIn the event this information is protected by the Federal Confidentiality of Alcohol and Drug Abuse Patient Records regulations: The Federal rules restrict any use of the information to criminally investigate or prosecute any alcohol or drug abuse patient.[facility] HospitalIn the event this information is protected by the Federal Confidentiality of Alcohol and Drug Abuse Patient Records regulations: The Federal rules restrict any use of the information to criminally investigate or prosecute any alcohol or drug abuse patient.[facility] HospitalIn the event this information is protected by the Federal Confidentiality of Alcohol and Drug Abuse Patient Records regulations: The Federal rules restrict any use of the information to criminally investigate or prosecute any alcohol or drug abuse patient.[facility] HospitalIn the event this information is protected by the Federal Confidentiality of Alcohol and Drug Abuse Patient Records regulations: The Federal rules restrict any use of the information to criminally investigate or prosecute any alcohol or drug abuse patient.[facility] HospitalIn the event this information is protected by the Federal Confidentiality of Alcohol and Drug Abuse Patient Records regulations: The Federal rules restrict any use of the information to criminally investigate or prosecute any alcohol or drug abuse patient.[facility] HospitalIn the event this information is protected by the Federal Confidentiality of Alcohol and Drug Abuse Patient Records regulations: The Federal rules restrict any use of the information to criminally investigate or prosecute any alcohol or drug abuse patient.[facility] HospitalIn the event this information is protected by the Federal Confidentiality of Alcohol and Drug Abuse Patient Records regulations: The Federal rules restrict any use of the information to criminally investigate or prosecute any alcohol or drug abuse patient.[facility] HospitalIn the event this information is protected by the Federal Confidentiality of Alcohol and Drug Abuse Patient Records regulations: The Federal rules restrict any use of the information to criminally investigate or prosecute any alcohol or drug abuse patient.[facility] HospitalIn the event this information is protected by the Federal Confidentiality of Alcohol and Drug Abuse Patient Records regulations: The Federal rules restrict any use of the information to criminally investigate or prosecute any alcohol or drug abuse patient.[facility] HospitalIn the event this information is protected by the Federal Confidentiality of Alcohol and Drug Abuse Patient Records regulations: The Federal rules restrict any use of the information to criminally investigate or prosecute any alcohol or drug abuse patient.[facility] HospitalIn the event this information is protected by the Federal Confidentiality of Alcohol and Drug Abuse Patient Records regulations: The Federal rules restrict any use of the information to criminally investigate or prosecute any alcohol or drug abuse patient.[facility] HospitalIn the event this information is protected by the Federal Confidentiality of Alcohol and Drug Abuse Patient Records regulations: The Federal rules restrict any use of the information to criminally investigate or prosecute any alcohol or drug abuse patient.[facility] HospitalIn the event this information is protected by the Federal Confidentiality of Alcohol and Drug Abuse Patient Records regulations: The Federal rules restrict any use of the information to criminally investigate or prosecute any alcohol or drug abuse patient.[facility] HospitalIn the event this information is protected by the Federal Confidentiality of Alcohol and Drug Abuse Patient Records regulations: The Federal rules restrict any use of the information to criminally investigate or prosecute any alcohol or drug abuse patient.[facility] HospitalIn the event this information is protected by the Federal Confidentiality of Alcohol and Drug Abuse Patient Records regulations: The Federal rules restrict any use of the information to criminally investigate or prosecute any alcohol or drug abuse patient.[facility] HospitalIn the event this information is protected by the Federal Confidentiality of Alcohol and Drug Abuse Patient Records regulations: The Federal rules restrict any use of the information to criminally investigate or prosecute any alcohol or drug abuse patient.[facility] Care Teams (unrecognized sec tion and content) [employer]orer [employer] Relationship Specialty Start Date End Date Carolina Hirsch [address] [place] [address] [place] [address] PCP - General CONTACT AGENT 05/01/17 [employer]orer [employer]age Relationship Specialty Start Date End Date Carolina Hirsch [address] [place] [address] PCP - General CONTACT AGENT 05/01/17 Laborer Salvage Relationship Specialty Start Date End Date Carolina Hirsch [address] [place] [place] [address] PCP - General CONTACT AGENT 05/01/17 Laborer Salvage Relationship Specialty Start Date End Date Carolina Hirsch [address] [place] [address] PCP - General CONTACT AGENT 05/01/17 Laborer [employer]age Relationship Specialty Start Date End Date Carolina Hirsch [address] [place] [address] PCP - General CONTACT AGENT 05/01/17 Laborer Salvage Relationship Specialty Start Date End Date Carolina Hirsch [address] [place] [address] [place] [address] PCP - General CONTACT AGENT 05/01/17 Laborer Salvage Relationship Specialty Start Date End Date Carolina Hirsch M [address] [place] [address] PCP - General CONTACT AGENT 05/01/17 Laborer Salvage Relationship Specialty Start Date End Date Joselyn Marcos, AURICULAR THERAPIST.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 [address] [place], [place] [id number] PCP - General Family Practice 04/24/22 Laborer Salvage Relationship Specialty Start Date End Date Joselyn Marcos, AURICULAR THERAPIST.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 [address] [place], [place] [phone] PCP - General Family Practice 04/24/22 Laborer Salvage Relationship Specialty Start Date End Date Joselyn Marcos, AURICULAR THERAPIST.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 [address] [place], [place] [id number] PCP - General Family Practice 04/24/22 Laborer Salvage Relationship Specialty Start Date End Date Joselyn Marcos, AURICULAR THERAPIST.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 [address] [place] [address] PCP - General Family Medicine 04/24/22 Laborer Salvage Relationship Specialty Start Date End Date Joselyn Marcos, AURICULAR THERAPIST.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 PCP - General Family Medicine 04/24/22 Laborer Salvage Relationship Specialty Start Date End Date Joselyn Marcos, AURICULAR THERAPIST.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 PCP - General Family Medicine 04/24/22 Laborer Salvage Relationship Specialty Start Date End Date Joselyn Marcos, AURICULAR THERAPIST.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 PCP - General Family Medicine 04/24/22 Laborer Salvage Relationship Specialty Start Date End Date Josleyn Marcos, AURICULAR THERAPIST.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 PCP - General Family Medicine 04/24/22 Laborer Salvage Relationship Specialty Start Date End Date Joselyn Marcos, AURICULAR THERAPIST.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 PCP - General Family Medicine 04/24/22 Laborer Salvage Relationship Specialty Start Date End Date Joselyn Marcos, AURICULAR THERAPIST.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 PCP - General Family Medicine 04/24/22 Laborer Salvage Relationship Specialty Start Date End Date Joselyn Marcos AURICULAR THERAPIST.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 PCP - General Family Medicine 04/24/22 Laborer Salvage Relationship Specialty Start Date End Date Joselyn Marcos, AURICULAR THERAPIST.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 [address] [place], [place] [id number] PCP - General Family Medicine 04/24/22 Team Status: Inactive Member Role Status Dates Joselyn Marcos CHANNEL WORKER, CHANNEL WORKER-C Attending Provider Active Team Status: Inactive Member Role Status Dates Joselyn Marcos CHANNEL WORKER, CHANNEL WORKER-C Attending Provider, Referring Provider Active Laborer Salvage Relationship Specialty Start Date End Date Joselyn Marcos, AURICULAR THERAPIST.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 [address] [place], [place] [phone] PCP - General Family Medicine 04/24/22 Laborer Salvage Relationship Specialty Start Date End Date Joselyn Marcos, AURICULAR THERAPIST.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 [address] [place] [address] PCP - General Family Medicine 04/24/22 Laborer Salvage Relationship Specialty Start Date End Date Joselyn Marcos, AURICULAR THERAPIST.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 [address] [place], [place] [id number] PCP - General Family Medicine 04/24/22 Laborer Salvage Relationship Specialty Start Date End Date Joselyn Marcos, AURICULAR THERAPIST.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 [address] [place], [place] [id number] PCP - General Family Medicine 04/24/22 Laborer Salvage Relationship Specialty Start Date End Date Joselyn Marcos, AURICULAR THERAPIST.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 [address] [place] [address] PCP - General Family Medicine 04/24/22 Laborer Salvage Relationship Specialty Start Date End Date Joselyn Marcos, AURICULAR THERAPIST.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 [address] [place] [address] PCP - General Family Medicine 04/24/22 Laborer Salvage Relationship Specialty Start Date End Date Joselyn Marcos, AURICULAR THERAPIST.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 [address] [place] [address] PCP - General Family Medicine 04/24/22 Laborer Salvage Relationship Specialty Start Date End Date Joselyn Marcos, AURICULAR THERAPIST.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 [address] [facility] [place] [address] PCP - General Family Medicine 04/24/22 Laborer Salvage Relationship Specialty Start Date End Date Joselyn Marcos, AURICULAR THERAPIST.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 [address] [place] [address] PCP - General Family Medicine 04/24/22 Laborer Salvage Relationship Specialty Start Date End Date Joselyn Marcos, AURICULAR THERAPIST.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 [address] [place] [address] PCP - General Family Medicine 04/24/22 Laborer Salvage Relationship Specialty Start Date End Date Joselyn Marcos, AURICULAR THERAPIST.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 [address] [place] [address] PCP - General Family Medicine 04/24/22 Laborer Salvage Relationship Specialty Start Date End Date Joselyn Marcso, AURICULAR THERAPIST.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 [address] [place], [place] [phone] PCP - General Family Medicine 04/24/22 Laborer Salvage Relationship Specialty Start Date End Date Joselyn Marcos, AURICULAR THERAPIST.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 [address] [place], [place] [phone] PCP - General Family Medicine 04/24/22 Laborer Salvage Relationship Specialty Start Date End Date Joselyn Marcos, AURICULAR THERAPIST.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 [address] [place], [place] [phone] PCP - General Family Medicine 04/24/22 Laborer Salvage Relationship Specialty Start Date End Date Joselyn Marcos, AURICULAR THERAPIST.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 [address] [place] [address] PCP - General Family Medicine 04/24/22 Laborer Salvage Relationship Specialty Start Date End Date Joselyn Marcos, AURICULAR THERAPIST.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 [address] [place] [address] PCP - General Family Medicine 04/24/22 Laborer Salvage Relationship Specialty Start Date End Date Joselyn Marcos, AURICULAR THERAPIST.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 [address] [place], [place] [phone] PCP - General Family Medicine 04/24/22 Reason for Visit (unrecogniz ed section and content) Reason Comments Flashes Right Eye x 1 month Blurry Vision Both Eyes x 1 year Reason Comments Nurse Triage Call Reason Comments Photo(s) Requested Reason Comments Floaters Both Eyes Flashes Reason Comments Cataract Evaluation Both Eyes Reason Comments Multiple Nevi Evaluation Reason Comments Appointment Reason Comments Retinal tear Right eye Reason Comments Preparations For Surgery A-scan reminder Reason Comments Cataract Follow Up Reason Comments Preparations For Surgery IOL left eye Reason Comments Post-op (Ophthalmology) Left Eye 1day PO 1 left eye:S/P Phaco IOL 08/19/22 Reason Comments Post-op Cataract OS 08/19/2022 Reason Comments Retinal tear follow up right eye 022 Retinopexy laser right eye Reason Comments Surgery Cancelled Reason Comments 1 day po op Right Eye cataract s urgery Reason Comments Schedule Surgery phaco right eye Reason Comments Refill Request Reason Comments Post-op Cataract OD 11/19/2022 Post-op Cataract OS 08/19/2022 Reason Comments Epiretinal Membrane Evaluation Right Eye Reason Comments Epiretinal Membrane Follow Up Right eye Pseudophakia Bilateral Reason Comments Epiretinal Membrane Follow Up Reason Comments Horseshoe Tear Follow Up OS Reason Comments Refraction Reason Comments Decreased Vision Left Eye Reason Comments Post-op (Ophthalmology) Left Eye Reason Comments Post-op (Ophthalmology) OS S/p SB/PPV OS 01/11/24 Reason Comments Post-op (Ophthalmology) Left Eye Retina Surgery To Repair Retinal Detachment, LEFT EYE RD Reason Comments RD follow up OS Goals (unrecognized section and content) Goals may be documented in a n alternate section Active Administered Medications - up to 3 most recent administrations Administered Medications (un recognized section and content) Medication Order MAR Action Action Date Dose Rate Site PHENYLephrine 2.5 % 1 Drop (AK-DILATE, EFRAÍN-SYNEPHRINE) 1 Drop, BOTH EYES, DIRECTED, Starting on Fri11/12/23 at 0930, Until Fri11/12/23 at 2128, Administer for dilation PROTECT FROM LIGHT, OPHT CLINIC MED ORDERS Given 11/12/2023 9:30 AM EST 1 Drop tropicamide 1 % 1 Drop (MYDRIACYL) 1 Drop, BOTH EYES, DIRECTED, Starting on Fri11/12/23 at 0900, Until Fri11/12/23 at 2058, Administer for dilation, OPHT CLINIC MED ORDERS Given 11/12/2023 9:00 AM EST 1 Drop FOR RECORDS PERTAINING TO PATIENTS WHO ARE OR HAVE BEEN ENROLLED IN A CHEMICAL DEPENDENCY/SUBSTANCEABUSE PROGRAM, SOME INFORMATION MAY BE OMITTED. This clinical summary was aggregated from multiple sources. Caution should be exercised in using it in the provision of clinical care. This summary normalizes information from multiple sources, and as a consequence, information in this document may materially change the coding, format and clinical context of patient data. In addition, data may be omitted in some cases. CLINICAL DECISIONS SHOULD BE BASED ON THE PRIMARY CLINICAL RECORDS. [facility] provides no warranty or guarantee of the accuracy or completeness of information in this document.
== END | disposition home or self-care (01) ==
PROVIDERS: PCP Nurse Practitioner
DX: R30.0 Dysuria (principal); R35.0 Frequency of micturition
CPT/HCPCS: 87077; 87086; 87088; 87186

== ENCOUNTER → 2025-05-20 | Outpatient (CLI) | payer MEDICARE, SELFPAY ==
--- OUTSIDE RECORDS SUMMARY | 2025-05-20 22:35 | XMS RPT_ITS | CCD ---
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 (BOTH EYES) EXTERNAL PHOTOS OU (BOTH EYES) [facility] Routine Nevus of conjunctiva, right Iris nevus, right 04/03/2022 4:11 PM EDT [facility] Work Phone: EXTERNAL PHOTOS OU (BOTH EYES) EXTERNAL PHOTOS OU (BOTH EYES) [facility] Routine Iris nevus, right 04/11/2022 2:19 PM EDT [facility] Work Phone: IOL BIOMETRY W/ IOL CALC OU (BOTH EYES) IOL BIOMETRY W/ IOL CALC OU (BOTH EYES) [facility] Routine Combined forms of age-related cataract of both eyes 1 Occurrences starting 04/19/2022 [facility] Work Phone: Comment on above: 1 Occurrences starti ng 04/19/2022 Left eye Photo documentation FUNDUS PHOTOS OS (LEFT EYE) [facility] Routine Lattice degeneration of retina, bilateral 01/10/2024 [facility] Work Phone: Comment on above: 01/10/2024 OCT MACULA CIRRUS OS (LEFT EYE) OCT MACULA CIRRUS OS (LEFT EYE) [facility] Routine Lattice degeneration of retina, bilateral Ordered: 01/10/2024 [facility] Work Phone: Comment on above: Ordered: 01/10/2024 End: 12-09-2024 OCT MACULA CIRRUS OU (BOTH EYES) OCT MACULA CIRRUS OU (BOTH EYES) [facility] Routine Epiretinal membrane (ERM) of right eye Pseudophakia of both eyes Retinal tear, right Iris nevus, right Nevus of conjunctiva, right Choroidal nevus, left 1 Occurrences starting 06/18/2023 until 12/09/2024 [facility] Work Phone: Comment on above: 1 Occurrences starti ng 06/18/2023 until 12/09/2024 End: 05-05-2025 OCT MACULA CIRRUS OU (BOTH EYES) OCT MACULA CIRRUS OU (BOTH EYES) [facility] Routine Epiretinal membrane (ERM) of right eye Pseudophakia of both eyes Retinal tear, right Iris nevus, right Nevus of conjunctiva, right Choroidal nevus, left 1 Occurrences starting 11/12/2023 until 05/05/2025 [facility] Work Phone: Comment on above: 1 Occurrences starti ng 11/12/2023 until 05/05/2025 [facility] Payers Date Payer Category Payer Self-pay [id number] 2019 Medicare UHC AAR MEDICAR E [facility] MEDICARE O [id number] 2019-Present [phone] [address] [address] [place] [address] O [id number] 2019 Medicare UHC AAR MEDICAR E UHC AARP MEDICARE HMO [id number] 2019-Present [phone] [place] [id number] O [id number] 2019 Medicare (Managed Care) [facility] MEDICARE HMO [id number] 2019 Unknown [id number] Medicare MEDICARE PART A B [id number] Medicare [id number] Unknown [id number] Unknown [id number] Social History Date Type Detail Facility Start: 08-16-2020 End: 08-02-2022 Tobacco smoking status NHIS Never smoked tobacco [facility] Work Phone: Start: 08-16-2020 End: 02-01-2025 Alcohol intake Not Asked [facility] Start: 1950 Sex Assigned At Not on file [facility] Start: 01-14-2022 End: 08-19-2022 Exposure to SARS-CoV-2 (event) Not sure [facility] Start: 08-16-2020 End: 08-02-2022 Tobacco use and exposure Smokeless tobacco non-user [facility] Start: 1950 Sex Assigned At Female [facility] Start: 02-12-2023 End: 06-12-2023 History of Social function [facility] Start: 02-12-2023 End: 06-12-2023 Tobacco use panel [facility] National Score (1-100), lower number is lower risk 40 [facility] Tobacco smoking stat us NEIS Unknown if ever smoked [facility] Work Phone: Medical Equipment Procedure Code Equipment Code Equipment Origin al Text Equipment Identifier Dates Lens Acrysof Ultrasert +22 Diopter Acrylic Iol 1 Piece Foldable Uv Blue - [id number] Start: 08-19-2022 Lens Acrysof Ultrasert +22 Diopter Acrylic Iol 1 Piece Foldable Uv Blue - [id number] Start: 11-19-2022 Gas Ispan Constellation Intraocular Vision System [id number] 125gm - [id number] Start: 01-12-2024 Comment on above: Description: 14% Strip Silicone 125x3.5x.75mm Scleral Style 41 - [id number] Start: 01-12-2024 Sleeve 2.1mm 1mm Silicone 70mm Retinal Round Sterile - [id number] Start: 01-12-2024 Clinical Notes 01-24-2022 to 05-03-2025 Note Date & Type Note Facility 05-03-2025 Evaluation note Diagnosis Onset Date Resolution Anxiety acute May 03 4:21pm Depression acute May 03 4:21pm Dysuria acute May 03 4:21pm Frequency of urination acute 2024 4:21pm UTI (urinary tract infection) acute May 03, 2025 4:21pm [facility] Work Phone: 1(171) 414-689805-06-2025 NoteDate of Procedure 02/01/2025. Car Conditioner Information Bottom Finisher: CHANDLER. OCT Macula Interpretation Right Eye Abnormal foveal contour. Findings include Epiretinal membrane. Left Eye Normal foveal contour. Findings include Epiretinal membrane; Negative for Intraretinal fluid, Subretinal fluid. Interval Change Right Eye Stable. Left Eye Better.[id number] NoteHNO ID: [id number] Author: FRANCINE CROUCH MD Service: ? Author [...] and agree with all of its relevant components.[facility]05-06-2025 History of Present illness Narrative* Francine Crouch MD - 02/01/2025 11:20 AM EDT This is a 74 year old female [...] of its relevant components. documented [facility] encounter[facility]-2024 NoteHNO ID: [id number] Author: ERNA DIAZ, MANDEEP Service: ? Author Type: SAND SHOVELER Type: Progress Notes Filed: 06/09/2024 10:04 Note Text: 1. Refractive error 2. 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 Crouch. Erna Diaz, [facility] History of Present illness Narrative* Erna Diaz, OD - 06/09/2024 9:46 AM EDT 1. Refractive error 2. 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 Crouch. Erna Diaz, OD documented in this encounterMag[facility]07-18-2024 NoteHNO ID: [id number] Author: FRANCINE CROUCH MD Service: ? Author [...] and agree with all of its relevant components.[facility]07-18-2024 History of Present illness Narrative* Francine Crouch MD - 04/15/2024 12:14 PM EDT This is a 73 year old female [...] of its relevant components. documented in this encounterMag[facility]06-[facility]-2024 Instructions* Patient Instructions* Francine Crouch MD - 03/04/2024 12:21 PM EDT POST OPERATIVE INSTRUCTIONS Questions/problems: Call Dr. Crouch at [phone] hit zero or [phone] ask for eye doc it applications developer Activity: No strenuous activities such as exercise, [...] can be given approximately at Breakfast, Lunch, Dinner,and Before bedtime. Continue all drops as instructed until follow up. documented in this encounterMag[facility] Hospital06-06-2024 NoteHNO ID: [id number] Author: FRANCINE CROUCH MD Service: ? Author [...] others. I have seen and examined Kylie Mckenzie [place]. I have discussed the case and the management of this patient's care with the Resident/Fellow, if applicable. I also have reviewed and agree with the assessment and plan as stated above and agree with all of its relevant components.[facility]06-06-2024 History of Present illness Narrative* Francine Crouhc MD - 03/04/2024 12:14 PM EDT This is a 73 year old female [...] of its relevant components. documented in this encounterMag[facility] Hospital05-09-2024 Instructions* Patient Instructions* Francine Crouch MD - 02/05/2024 12:09 PM EDT 1 WEEK POST OPERATIVE INSTRUCTIONS Questions/problems: Call Dr. Crouch at [phone] or [phone] (ask for eye doc it applications developer) or cell [phone] Positioning: Face down redaing position during day [...] 2 times a day documented in this encounterMag[facility] Hospital05-09-2024 NoteHNO ID: [id number] Author: FRANCINE CROUCH MD Service: ? Author [...] and agree with all of its relevant components.[facility]05-09-2024 History of Present illness Narrative* Francine Crouch MD - 02/05/2024 12:04 PM EDT This is a 73 year old female [...] of its relevant components. documented in this encounterMag[facility] Hospital04-23-2024 History of Present illness Narrative* Francine Crouch MD - 01/20/2024 12:03 PM EDT This is a 73 year old female [...] 1 more week (then taper to four timesa day ), continue Cosopt twice a day [...] of its relevant components. documented in this encounterMagruder Hospital04-23-2024 Instructions* Patient Instructions* Francine Crouch MD - 01/20/2024 11:52 AM EDT 1 WEEK POST OPERATIVE INSTRUCTIONS Questions/problems: Call Dr. Crouch at [phone] or [phone] (ask for eye doc it applications developer) or cell [phone] Activity: No strenuous activities such as exercise, [...] see you back) Dilating drop Atropine (registered nurse float pool) 1 drop 2 times a day (STOP once bottle is empty) Pressure lowering drop Cosopt (blue cap) 1 drop 2 times a day Alphagan (purple top) 1 drop 2 times a day Drops that are to be taken four times a day can be given approximately at Breakfast, Lunch, Dinner,and Before bedtime. Continue all drops as instructed until follow up. documented in this encounterMagr[facility] Hospital04-16-2024 History of Present illness Narrative* Francine Crouch MD - 01/13/2024 12:19 PM EDT This is a 73 year old female [...] of its relevant components. documented in this encounterMagruder Hospital04-16-2024 Instructions* Patient Instructions* Francine Crouch MD - 01/13/2024 11:55 AM EDT POST OPERATIVE INSTRUCTIONS Questions/problems: Call Dr. Crouch at [phone] or [phone] (ask for eye doc it applications developer) or cell [phone] Activity: No strenuous activities such as exercise, [...] times a day Dilating drop Atropine (registered nurse float pool) 1 drop 2 times a day Pressure lowering drop Cosopt (blue cap) 1 drop 2 times a day Alphagan (purple top) 1 drop 2 times a day Acetozolamide pills 1 pill 3x a day Drops that are to be taken four times a day can be given approximately at Breakfast, Lunch, Dinner,and Before bedtime. Continue all drops as instructed until follow up. documented in this encounterMagruder Hospital04-13-2024 History and physical note * Armand Engel MD - 01/10/2024 11:48 PM EDT Pre-Operative History and Physical CC: pre-operative history and physical exam HPI: A 73 year old female with new retinal detachment OS will be undergoing retinal detachment repair. Functional Status: Can climb two flights of stairs without getting short of breath. ROS: General: Denies fevers, chills, unexplained weight loss BOOTH USHER: Denies headache, weakness, numbness, tingling Resp: Endorses shortness of breath with exertion. Denies cough, pneumonia in past 6 months, CV: Denies angina, recent CO/PCI/CABG, peripheral edema Abdomen: Endorses occasional constipation. Denies diarrhea, melena, hematemesis, ascities Endo: Denies recent steroid use and diabetes Hematologic: Denies easy bruising/bleeding, antiplatelet/anticoagulation use. Denies history of cancer. [facility] PAST MEDICAL HISTORY Diagnosis Date Choroidal nevus, [...] ophthalmic suspension Use 1 Drop in the righteye four times daily. 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 Burnett, We are pleased to [...] report will be kept on file at [facility] as part of your permanent medical record and are available for your continuing care. Thank you for allowing us to help in meeting your health care needs. Sincerely, Dr. Hendricks Interpreting Radiologist [facility] (Normal over 40) documented in this encounterMagruder Hospital03-05-2024 History of Present illness Narrative* Erna Diaz, OD - 12/02/2023 10:21 AM EST 1. Myopia, bilateral 2. Regular astigmatism of right eye 3. Presbyopia -h/o tear OS, PVD OU, lattice OU, tear OD, ERM OD, pseudophakia OU, choroid nevus OD, conjunctival nevus OS, follows with Dr. Figueroa. Here today for refraction -BCVA: 20/30+, 20/20 OS -released new spec Rx -RTC as needed for refraction Erna Diaz, OD documented in this encounterMagruder Hospital02-14-2024 History of Present illness Narrative* Milton Figueroa MD - 11/12/2023 8:45 AM EST Symptomatic retinal tear, left eye - has [...] and plan as stated above and agree withall of its relevant components. documented in this encounterMagruder Hospital09-20-2023 History of Present illness Narrative* Milton Figueroa MD - 06/18/2023 11:30 AM EDT Recently seen by Dr. Garcia for routine [...] and plan as stated above and agree withall of its relevant components. Milton Figueroa MD documented in this encounterMagruder Hospital09-14-2023 History of Present illness Narrative* Wellington Garcia, OD - 06/12/2023 10:45 AM EDT Assessment and Plan: 1. Epiretinal membrane (ERM) [...] staff. I have seen and examined Kylie Bunrett. I have discussed the examinationfindings, diagnosis, and treatment options with Kylie Burnett and/or her family. I have also reviewed and agree with the assessment and plan as stated above and agree with all its relevant components. I gave the patient the opportunity to ask questions about the examination findings, diagnosis, and treatment options. documented in this encounterMagruder Hospital09-14-2023 Instructions* Patient Instructions* Wellington Garcia, OD - 06/12/2023 10:43 AM EDT Images from the original note were not included. Please call the office immediately if you notice flashes of light, a sudden increase in floaters, or a sudden change in vision. Please call the office with decreased vision or increased eye pain. documented in this encounterMagruder Hospital05-17-2023 Instructions* Patient Instructions* Milton Figueroa MD - 02/12/2023 11:26 AM EDT Images from the original note were not included. documented in this encounterMagruder Hospital05-17-2023 History of Present illness Narrative* Milton Figueroa MD - 02/12/2023 10:00 AM EDT Previously seen with Dr. Dumont Epiretinal membrane, [...] and plan as stated above and agree withall of its relevant components. Milton Figueroa MD documented in this encounterMagruder Hospital03-15-2023 History of Present illness Narrative* Wellington Garcia, OD - 12/11/2022 10:09 AM EDT Assessment and Plan: 1. Pseudophakia of both [...] in the future -Consult Retina Service at [facility] for Evaluation. 3. Retinal tear, right [...] examined Kylie Burnett. I have discussed the examinationfindings, diagnosis, and treatment options with Kylie Burnett and/or her family. I have also reviewed and agree with the assessment and plan as stated above and agree with all its relevant components. I gave the patient the opportunity to ask questions about the examination findings, diagnosis, and treatment options. documented in this encounterMagruder Hospital03-15-2023 Instructions* Patient Instructions* Wellington Garcia, MANDEEP - 12/11/2022 9:58 AM EDT Images from the original note were not included. Prednisolone and Ketorolac twice a day Right eye until 12/17/2022. Please call the office with decreased vision or increased eye pain. documented in this encounterMagruder Hospital03-07-2023 Miscellaneous Notes* Telephone Encounter - Edna Grove - 12/03/2022 3:46 PM EST Received refill request from patient for Ketorolac. Order pending if appropriate, thank you Edna Grove December 03, 2022 3:47 PM * Telephone Encounter - Demetrice Thompson - 12/03/2022 3:43 PM EST Medication(s) requested: Ketorolac Amount (30 or 90 day supply?): Post surgery Pharmacy information: [facility] [id number] - [place] [address] [id number] - [phone] Need today? Yes Prescribing physician: LOLA documented in this encounterMagruder Hospital02-22-2023 Instructions* Patient Instructions* Patricia Beckford MD - 11/20/2022 1:19 PM [...] week then decrease to twice a day xtwo weeks then discontinue. Continue Ketorolac right eye four times a day x one week then twice a day x two weeks then discontinue . Discontinue Shield right eye. documented in this encounterMagruder Hospital02-22-2023 History of Present illness Narrative* Patricia Beckford MD - 11/20/2022 1:13 PM EST (Z96.1) Pseudophakia, both eyes (primary encounter diagnosis) [...] instructed to call if changes occur. (D22.30) Hvac Service Tech nevus Comment: Quiescent. Plan: Monitor Per Dr. [...] and plan as stated above and agree withall of its relevant components. Patricia Beckford MD November 20, 2022 1:14 PM documented in this encounterMagruder Hospital12-29-2022 Miscellaneous Notes* Telephone Encounter - Horace Ba - 09/26/2022 3:16 PM EST Called pat back to touch base on where she is at now after surgery was cancelled in Aug due to her having bronchitis, upper resp infection and etc. Patient was under commission and could not have surgery. Pat said she is well again to schedule in near future. documented in this encounterMag[facility]12[facility]22 Miscellaneous Notes* Telephone Encounter - Lias Holden - 09/25/2022 4:54 PM EST Patient left message in surgery scheduling: Calling to reschedule previously cancelled cataract surgery with Dr. Beckford from 09/17/22. Sending to Horace to call patient. documented in this encounterMagruder Hospital12-14-2022 Miscellaneous Notes* Telephone Encounter - Horace Ba - 09/11/2022 8:41 AM EST Patient called in cancelling her surgery for 09/17/22 due to her having an upper respiratory infection. I will call patient next week to check on her status as this is her second surgery. Case cancelled out by Magaly Ba All related appts also cancelled out by Magaly Ba documented in this encounterMagruder Hospital12-01-2022 History of Present illness Narrative* Cm Dumont MD, PhD - 08/29/2022 11:15 AM EST Referred by Dr. Piper vazquez for retinal [...] and plan as stated above and agree withall of its relevant components. Cm Dumont MD documented in this encounterMagruder Hospital11-29-2022 History of Present illness Narrative* Wellington Garcia, OD - 08/27/2022 11:29 AM EST Assessment and Plan: 1. Pseudophakia of left eye -08/19/2022, Dr. Beckford. -Doing well. -Use post-operative eyedrops per Dr. Beckford instructions. -Please call the office with decreased vision or increased eye pain. -Follow-up as scheduled. Wellington Garcia, OD I have reviewed, confirmed, and edited as necessary the relevant ophthalmic history, review of systems, allergies, patient history, and ophthalmological examination findings as obtained by the ophthalmic technical staff. I have seen and examined Kylie Burnett. I have discussed the examinationfindings, diagnosis, and treatment options with Kylie Mckenzie Lex and/or her family. I have also reviewed and agree with the assessment and plan as stated above and agree with all its relevant components. I gave the patient the opportunity to ask questions about the examination findings, diagnosis, and treatment options. documented in this encounterMagruder Hospital11-29-2022 Instructions* Patient Instructions* Wellington Garcia, MANDEEP - 08/27/2022 11:15 AM EST Use eyedrops per Dr. Beckford Instructions. Please call the office with decreased vision or increased eye pain. documented in this encounterMagruder Hospital11-22-2022 Instructions* Patient Instructions* Patricia Beckford MD - 08/20/2022 2:01 PM [...] DUE TO ALLERGY CONTRAINDICATIONS documented in this encounterMagruder Hospital11-22-2022 History of Present illness Narrative* Patricia Beckford MD - 08/20/2022 1:59 PM EST (Z96.1) Pseudophakia, left eye (primary encounter diagnosis) [...] and plan as stated above and agree withall of its relevant components. Patricia Beckford MD August 20, 2022 2:00 PM documented in this encounterMagruder Hospital11-17-2022 Miscellaneous Notes* Telephone Encounter - Horace Ba - 08/15/2022 10:43 AM EST Attempted to contact patient to inform to arrive at [address] [place] [address] at 09:00 am for 08/19/22 surgery with Patricia Beckford MD, to refrain from eating or drinking for 8 hours prior to arrival for surgery, and to begin the eyedrops in the left eye on 08/17/22. Left message on machine to call with any questions or concerns. documented in this [facility]11-07-2022 Miscellaneous Notes* Telephone Encounter - Lisa Holden - 08/05/2022 9:38 AM EST INTRAOCULAR LENS ORDER ATTN: [facility] PATIENTS NAME: Kylie Burnett SURGERY DATE: 08/19/2022 EYE: OS SURGEON: Patricia Beckford MD LENS: AcrySof IQ HAND CLOTH EXAMINER: Thien MODEL: [id number] POWER: + 22.0 ADDITIONAL NOTES: documented in this [facility]11-04-2022 Instructions* Patient Instructions* Patricia Beckford MD - 08/02/2022 12:14 PM [...] DUE TO ALLERGY CONTRAINDICATIONS documented in this encounterMagruder Hospital11-04-2022 History of Present illness Narrative* Patricia Beckford MD - 08/02/2022 11:55 AM EDT (H25.813) Combined forms of age-related cataract of [...] longer able to function adequately on a kvt-cl-ydodnltc because of her current visual condition. Further, [...] instructed to call if changes occur. (D22.30) Hvac Service Tech nevus Comment: Quiescent. Plan: Monitor Per Dr. [...] and plan as stated above and agree withall of its relevant components. Patricia Beckford MD August 02, 2022 11:55 AM documented in this encounterMagruder Hospital11-03-2022 Miscellaneous Notes* Telephone Encounter - Alana Prado - 08/01/2022 10:48 AM EDT Left voicemail to remind patient of appointment in our [place] office at [address] [place] [address], [address],on 08/02/22 at 10:00 a.m. Advised that contact lens wearers must be out of contacts for at least twoweeks before this appointment and to call back at [phone] to let us know when scheduled with primary care for the pre op physical exam. documented in this encounterMagruder Hospital08-31-2022 History of Present illness Narrative* Cm Dumont MD, PhD - 05/29/2022 4:46 PM EDT Referred by Dr. Piper vazquez for retinal [...] proceed with cataract surgery Note to Dr. Vazquez and Analy I have confirmed and edited as necessary the relevant ophthalmic history, ROS, and the neuro exam findings as obtained by others. I have seen and examined this patient. I have discussed the case and the management of this patient's care with the Resident/Fellow, if applicable. I also have reviewed and agree with the assessment and plan as stated above and agree withall of its relevant components. Cm Dumont MD documented in this encounterMagruder Hospital08-24-2022 Miscellaneous Notes* Telephone Encounter - Horace Ba - 05/22/2022 2:08 PM EDT Patient's surgery for 08/07/[address] Dr[address] Beckford due to patient having a retinal tear. Dr. Beckford will determine when the patient can be rescheduled for cataract surgery. Case has been cancelled out by Magaly Ba documented in this encounterMagruder Hospital08-23-2022 History of Present illness Narrative* Martinez Vazquez MD - 05/21/2022 8:23 AM EDT 71 y/o female - referred by Dr Patricia Beckford ([facility]) for evaluation of conjunctival nevus and choroidal nevus, in the right eye and choroidal nevus in the lefte eye - known to have iris and choroidal nevi since childhood Nevus of Hvac Service Tech, OD (sectoral) - Flat, no intrinsic feeder vessels on iris - Slate solomon pigmentation inferonasal on sclera - OCT consistent with nevus Choroidal Nevus, OS : small : non suspicious - Flat, (-) SRF, (-) [place], (+) [place] - q 1 year : locally Retinal Tear, OD - Located at 1pm in periphery, patient is [place] (+) - Not having any active symptoms, some occasional flashes on head movement - Retina fellow it applications developer notified, will need retinopexy today - Follow [...] and plan as stated above and agree withall of its relevant components. Martinez Vazquez MD May 21, 2022 3:31 PM documented in this encounterMagruder Hospital07-22-2022 Instructions* Patient Instructions* Patricia Beckford MD - 04/19/2022 10:49 AM EDT Images from the original note were not included. documented in this encounterMagruder Hospital07-22-2022 History of Present illness Narrative* Patricia Beckford MD - 04/19/2022 10:38 AM EDT (H25.813) Combined forms of age-related cataract of [...] longer able to function adequately on a ehe-mi-vfyatare because of her current visual condition. Further, [...] If cleared, Cataract extraction/IOL right eye Target: [place] vs -2.25 (consider computer set up left [...] and plan as stated above and agree withall of its relevant components. Patricia Beckford MD April 19, 2022 10:38 AM documented in this encounterMagruder Hospital07-14-2022 History of Present illness Narrative* Carolina Dove MD - 04/11/2022 3:11 PM EDT (H53.10) Subjective visual disturbance (primary encounter diagnosis) [...] and plan as stated above and agree withall of its relevant components. Carolina Ledezma MD documented in this encounterMagruder Hospital07-12-2022 Miscellaneous Notes* Telephone Encounter - Mikaela Smith RN - 04/09/2022 3:58 PM EDT Copied from Dr. Joshi routing note. She's scheduled to see Dr. Mobley in a couople of days. Can take her off my scheduld Patient is on his schedule on 04/15/2021 for a cataract eval with either Dr. Joshi, Dr. Dove or Dr. Beckford. Mikaela Smith RN April 09, 2022 4:00 PM * Telephone Encounter - Mikaela Smith RN - 04/08/2022 3:28 PM EDT Spoke with patient. States that the floaters [...] Smith RN April 08, 2022 3:31 PM * Telephone Encounter - Ginger Meliton Pss - 04/08/2022 3:07 PM EDT Patient states she started having floaters this morning. States she has not had them in months. States there is no new flashes of light since last visit. States vision is blurry but no loss of vision. States eye feels different since last appointment. Patient is coming in for visual field ,I scheduled with on same day. Is this date okay? documented in this encounterMagruder Hospital07-06-2022 Instructions* Patient Instructions* Steven Dwyer Jr., MD - 04/03/2022 4:07 [...] not go to an Urgent Care or [facility] Emergency facility) If any of these symptoms occur when you are out of town or the country go to a main hospital emergency room for treatment where you are. Do not wait to return home as most times getting treatment fast can make a difference in the amount of vision lost or returned. . documented in this encounterMagruder Hospital07-06-2022 History of Present illness Narrative* Steven Dwyer Jr., MD - 04/03/2022 4:04 PM EDT D31.01 Nevus of conjunctiva, right (primary encounter [...] increase in flashes. Patient to go to [facility] emergency room if out of town or [...] and plan as stated above and agree withall of its relevant components. Return if symptoms worsen or fail to improve, for Needs appointment for Cataract eval YAMILEX Gil, or Analy. documented in this encounterMagruder Hospital04-28-2022 Miscellaneous Notes* Letter - Mammography Coordinator - 01/24/2022 10:50 AM EDT January 24, 2022 PID: [id number] Kylie Burnett [address] [place] [address] Dear Ms. Burnett, We are pleased to [...] report will [facility] permanent medical record and are available for your continuing care. Thank you for allowing us to help in meeting your health care needs. Sincerely, Dr. Fernandes Interpreting Radiologist [facility] (Normal over 40) documented in this encounterMagruder Hospital04-28-2022 History of Present illness Narrative* RT Dell(R) - 01/24/2022 10:20 AM EDT Radiology Service Progress Note PATIENT NAME: Kylie Burnett DATE OF SERVICE: January 24, 2022 TIME: 10:26 AM PATIENT IDENTITY VERIFICATION COMPLETED USING TWO (2) IDENTIFIERS: Name and Date of confirmedby patient verbally. FALL SCREENING: Has the patient had 2 falls in the last year or 1 fall with injury or currently using an Ambulatory Assistive Device (Walker, Cane, Wheelchair, Crutches, etc.)? No PATIENT GENDER DATA: Female. status: : No status: NO. 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 age-related cataract, both eyes documented in this encounter [facility]* Diagnosis Lattice degeneration of retina, 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, right documented in this encounter [facility]* Diagnosis Subjective visual disturbance- Primary Subjective visual disturbance, unspecified Nevus of conjunctiva, right Iris nevus, right Choroidal nevus, left Lattice degeneration of retina, bilateral Lattice degeneration of peripheral retina PVD (posterior vitreous detachment), right Nuclear sclerotic cataract of both eyes Senile nuclear sclerosis Cortical age-related cataract, both eyes documented in this encounter [facility]* Diagnosis Combined forms of age-related cataract of both eyes- Primary Other and combined forms of senile cataract Nevus of conjunctiva, right Iris nevus, right Choroidal nevus, left PVD (posterior vitreous detachment), right Vitreous floater, bilateral Lattice degeneration of retina, bilateral Lattice degeneration of peripheral retina Myopia, bilateral Myopia Dermatochalasis of both upper eyelids [facility] Diagnosis Choroidal nevus, left- Primary Iris nevus, 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 Horseshoe retinal tear of right eye Horseshoe tear of retina without detachment Combined forms of age-related cataract of right eye Other and combined forms of senile cataract Combined forms of age-related cataract of left eye Other and combined forms of senile cataract [facility] Diagnosis Choroidal nevus, left- Primary Iris nevus, right Horseshoe retinal tear of right eye Horseshoe tear of retina without detachment Combined forms of age-related cataract of both eyes Other and combined forms of senile cataract Combined forms of age-related cataract of left eye Other and combined forms of senile cataract [facility]* Diagnosis Combined form of senile cataract of both eyes- Primary Combined forms of age-related cataract of left eye Other and combined forms of senile cataract [facility]* Diagnosis Combined forms of age-related cataract of both eyes- Primary Other and combined forms of senile cataract Choroidal nevus, left Iris nevus, right Horseshoe retinal tear of right eye Horseshoe tear of retina without detachment PVD (posterior vitreous detachment), 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, right Myopia, bilateral Myopia Dermatochalasis of both upper eyelids Combined forms of age-related cataract of left eye Other and combined forms of senile cataract Nuclear sclerosis of right eye [facility]* Diagnosis Pseudophakia, left eye- Primary Lens replaced by other means Combined forms of age-related cataract of both eyes Other and combined forms of senile cataract Nuclear sclerosis of right eye [facility]* Diagnosis Pseudophakia of left eye- Primary Lens replaced by other means Nuclear sclerosis of right eye [facility]* Diagnosis Epiretinal membrane (ERM) of right eye- Primary Nuclear sclerosis of right eye [facility]* Diagnosis Combined form of senile cataract of right eye- Primary Combined form of senile cataract of right eye Nuclear sclerosis of right eye [facility]* Diagnosis Onset Date Resolution Status Acquired cataract acute Vision abnormalities acute Bronchitis acute Sinusitis, acute acute Anxiety acute Breast cancer screening by mammogram acute Vision abnormalities acute Hypertension [facility] Work Phone: Evaluation note* Diagnosis Pseudophakia, both eyes- Primary Lens replaced by other means Combined forms of age-related cataract of both eyes Other and combined forms of senile cataract documented in this encounter [facility] note* Diagnosis Pseudophakia of both eyes- Primary Lens replaced by other means Epiretinal membrane (ERM) of right eye Retinal tear, right Iris nevus, right Nevus of conjunctiva, right Refractive error Unspecified disorder of refraction and accommodation [facility]* Diagnosis Epiretinal membrane (ERM) of right eye- Primary Pseudophakia of both eyes Lens replaced by other means Retinal tear, right Iris nevus, right Nevus of conjunctiva, right Choroidal nevus, left [facility]* Diagnosis Epiretinal membrane (ERM) of right eye- Primary Choroidal nevus, left Nevus of conjunctiva, right Iris nevus, right Retinal tear, right Pseudophakia of both eyes Lens replaced by other means [facility]* Diagnosis Epiretinal membrane (ERM) of right eye Pseudophakia of both eyes Lens replaced by other means Retinal tear, right Iris nevus, right Nevus of conjunctiva, right Choroidal nevus, left [facility]* Diagnosis Epiretinal membrane (ERM) of right eye Pseudophakia of both eyes Lens replaced by other means Retinal tear, right Iris nevus, right Nevus of conjunctiva, right Choroidal nevus, left [facility]* Diagnosis Myopia, bilateral- Primary Myopia Regular astigmatism of both eyes Regular astigmatism Presbyopia [facility]* Diagnosis Retinal detachment of left eye with single break- Primary Recent retinal detachment, partial, with single defect Lattice degeneration of retina, bilateral Lattice degeneration of peripheral retina [facility]* Diagnosis Postoperative state- Primary Other postprocedural status Retinal detachment of left eye with multiple breaks Recent retinal detachment, partial, with multiple defects [facility]* Diagnosis Postoperative state Other postprocedural status Retinal detachment of left eye with multiple breaks Recent retinal detachment, partial, with multiple defects [facility]* Diagnosis Retinal detachment of left eye with multiple breaks- Primary Recent retinal detachment, partial, with multiple defects [facility]* Diagnosis Retinal detachment of left eye with multiple breaks- Primary Recent retinal detachment, partial, with multiple defects Epiretinal membrane (ERM) of right eye [facility]* Diagnosis Retinal detachment of left eye with multiple breaks- Primary Recent retinal detachment, partial, with multiple defects [facility]* Diagnosis Refractive error- Primary Unspecified disorder of refraction and accommodation Presbyopia documented in this encounter [facility] note* Diagnosis Epiretinal membrane (ERM) of right eye- Primary documented [facility] this [facility] ([facility]ative)No reason for referral information availableWFisher-[facility] Work Phone: Summary Purpose Family History No Family History Records Found Relationship Condition Age at Onset Recorded Date/T berenice brother Diabetes mellitus Unknown Chronic obstructive pulmonary disease Unk nown sister Vascular disorder Unknown father Cardiac disease Unknown mother Disorder of thyroid Unknown Myocardial infarction Unknown Malignant neoplasm Unknown Lupus Unknown Eczema Unknown Advance Directives No Advanced Directives Records FoundDocuments on File Type Date Recorded 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 In the event of a Fluress shortage, administer 1 drop of [place]-Fluor into both eyes as directed for applanation tonometry., [facility] MED ORDERS Given 04/03/2022 3:30 PM EDT 1 Drop PHENYLephrine 2.5 % 1 Drop (AK-DILATE, EFRAÍN-SYNEPHRINE) 1 Drop, BOTH EYES, DIRECTED, Starting on Fri04/03/22 at 1530, Until Fri04/04/22 at 0329, Administer for dilation PROTECT FROM [...] on Fri05/30/22 at 0900, Until Fri05/30/22 at 2059, Administer for dilation Given 05/30/2022 9:00 AM [...] shortage, administer [place]-Fluor 1 drop into the left eye as [...] Until Fri08/29/22 at 2159, Administer for dilation PROTECT FROM LIGHT Given 08/29/2022 10:00 AM EST 1 Drop proparacaine 0.5 % 1 Drop (ALCAINE) 1 Drop, BOTH EYES, DIRECTED, Starting on Fri08/29/22 at 1000, Until Fri08/29/22 at 2159, Administer for pneumo tonometry, tonopen [...] the event of a Fluress shortage, administer [place]-Fluor 1 drop into both eyes as directed [...] 1000, Until Fri02/12/23 at 215, Administer for applanation tonometry. In the event of a Fluress shortage, administer [place]-Fluor 1 drop into both eyes as directed for applanation tonometry, [facility] CLINIC MED ORDERS Given 02/12/2023 10:00 AM EDT 1 Drop PHENYLephrine 2.5 % 1 Drop (AK-DILATE, EFRAÍN-SYNEPHRINE) 1 Drop, BOTH EYES, DIRECTED, Starting on Fri02/12/23 at 1000, Until Fri02/12/23 at 2158, Administer for dilation PROTECT FROM LIGHT, OPHT CLINIC MED ORDERS Given 02/12/2023 10:00 AM EDT 1 Drop proparacaine 0.5 % 1 Drop (ALCAINE) 1 Drop, BOTH EYES, DIRECTED, Starting on Fri02/12/23 at 1000, Until Fri02/12/23 at 2158, Administer for pneumo tonometry, tonopen [...] on Fri02/12/23 at 1000, Until Fri02/12/23 at 2158, Administer for dilation, [facility] [...] the event of a Fluress shortage, administer [place]-Fluor 1 drop into both eyes as directed [...] 1030, Until Fri06/18/23 at 2229, Administer for dilation, [facility]HT [facility]INIC MED ORDERS Given 06/18/2023 10:30 AM EDT 1 Drop Chief Complaint and Reason for Visit Chief Complaint Eye complaints Eye complaints/URI Eye complaints Reason for Visit Acquired cataract Vision abnormalities Bronchitis Sinusitis, acute Anxiety Breast cancer screening by mammogram Vision abnormalities Hypertension Chief Complaint Admit Date Urinary tract infection May 03, 2025 4:21pm Reason for Visit Admit Date Anxiety May 03, 2025 4:2 1pm Depression May 03, 2025 4:2 1pm Dysuria May 03, 2025 4:2 1pm Frequency of urination May 03, 2025 4:21pm UTI (urinary tract infection) April 4:21pm Additional Source Comments INFORMATION SOURCE (unrecogn ized section and content) DATE CREATED AUTHOR 04/12/2019 [facility] DATE CREATED AUTHOR AUTHOR'S ORGANIZ ATION 12/17/2023 [facility] DATE CREATED AUTHOR AUTHOR'S ORGANIZ ATION 02/04/2025 [facility] DATE CREATED AUTHOR AUTHOR'S ORGANIZ ATION 05/13/2025 [facility] Source Comments (unrecognize d section and content) In the event this informatio n is protected by the Federal Confidentiality of Alcohol and Drug Abuse Patient Records regulations: The Federal rules restrict any use of the information to criminally investigate or prosecute any alcohol or drug abuse patient.[facility] HospitalIn the event this information is protected by the Federal Confidentiality of Alcohol and Drug Abuse Patient Records regulations: The Federal rules restrict any use of the information to criminally investigate or prosecute any alcohol or drug abuse patient.[facility] HospitalIn the event this information is protected by the Federal Confidentiality of Alcohol and Drug Abuse Patient Records regulations: The Federal rules restrict any use of the information to criminally investigate or prosecute any alcohol or drug abuse patient.[facility] HospitalIn the event this information is protected by the Federal Confidentiality of Alcohol and Drug Abuse Patient Records regulations: The Federal rules restrict any use of the information to criminally investigate or prosecute any alcohol or drug abuse patient.[facility] HospitalIn the event this information is protected by the Federal Confidentiality of Alcohol and Drug Abuse Patient Records regulations: The Federal rules restrict any use of the information to criminally investigate or prosecute any alcohol or drug abuse patient.[facility] HospitalIn the event this information is protected by the Federal Confidentiality of Alcohol and Drug Abuse Patient Records regulations: The Federal rules restrict any use of the information to criminally investigate or prosecute any alcohol or drug abuse patient.[facility] HospitalIn the event this information is protected by the Federal Confidentiality of Alcohol and Drug Abuse Patient Records regulations: The Federal rules restrict any use of the information to criminally investigate or prosecute any alcohol or drug abuse patient.[facility] HospitalIn the event this information is protected by the Federal Confidentiality of Alcohol and Drug Abuse Patient Records regulations: The Federal rules restrict any use of the information to criminally investigate or prosecute any alcohol or drug abuse patient.[facility] HospitalIn the event this information is protected by the Federal Confidentiality of Alcohol and Drug Abuse Patient Records regulations: The Federal rules restrict any use of the information to criminally investigate or prosecute any alcohol or drug abuse patient.[facility] HospitalIn the event this information is protected by the Federal Confidentiality of Alcohol and Drug Abuse Patient Records regulations: The Federal rules restrict any use of the information to criminally investigate or prosecute any alcohol or drug abuse patient.[facility] HospitalIn the event this information is protected by the Federal Confidentiality of Alcohol and Drug Abuse Patient Records regulations: The Federal rules restrict any use of the information to criminally investigate or prosecute any alcohol or drug abuse patient.[facility] HospitalIn the event this information is protected by the Federal Confidentiality of Alcohol and Drug Abuse Patient Records regulations: The Federal rules restrict any use of the information to criminally investigate or prosecute any alcohol or drug abuse patient.[facility] HospitalIn the event this information is protected by the Federal Confidentiality of Alcohol and Drug Abuse Patient Records regulations: The Federal rules restrict any use of the information to criminally investigate or prosecute any alcohol or drug abuse patient.[facility] HospitalIn the event this information is protected by the Federal Confidentiality of Alcohol and Drug Abuse Patient Records regulations: The Federal rules restrict any use of the information to criminally investigate or prosecute any alcohol or drug abuse patient.[facility] HospitalIn the event this information is protected by the Federal Confidentiality of Alcohol and Drug Abuse Patient Records regulations: The Federal rules restrict any use of the information to criminally investigate or prosecute any alcohol or drug abuse patient.[facility] HospitalIn the event this information is protected by the Federal Confidentiality of Alcohol and Drug Abuse Patient Records regulations: The Federal rules restrict any use of the information to criminally investigate or prosecute any alcohol or drug abuse patient.[facility] HospitalIn the event this information is protected by the Federal Confidentiality of Alcohol and Drug Abuse Patient Records regulations: The Federal rules restrict any use of the information to criminally investigate or prosecute any alcohol or drug abuse patient.[facility] HospitalIn the event this information is protected by the Federal Confidentiality of Alcohol and Drug Abuse Patient Records regulations: The Federal rules restrict any use of the information to criminally investigate or prosecute any alcohol or drug abuse patient.[facility] HospitalIn the event this information is protected by the Federal Confidentiality of Alcohol and Drug Abuse Patient Records regulations: The Federal rules restrict any use of the information to criminally investigate or prosecute any alcohol or drug abuse patient.[facility] HospitalIn the event this information is protected by the Federal Confidentiality of Alcohol and Drug Abuse Patient Records regulations: The Federal rules restrict any use of the information to criminally investigate or prosecute any alcohol or drug abuse patient.[facility] HospitalIn the event this information is protected by the Federal Confidentiality of Alcohol and Drug Abuse Patient Records regulations: The Federal rules restrict any use of the information to criminally investigate or prosecute any alcohol or drug abuse patient.[facility] HospitalIn the event this information is protected by the Federal Confidentiality of Alcohol and Drug Abuse Patient Records regulations: The Federal rules restrict any use of the information to criminally investigate or prosecute any alcohol or drug abuse patient.[facility] HospitalIn the event this information is protected by the Federal Confidentiality of Alcohol and Drug Abuse Patient Records regulations: The Federal rules restrict any use of the information to criminally investigate or prosecute any alcohol or drug abuse patient.[facility] HospitalIn the event this information is protected by the Federal Confidentiality of Alcohol and Drug Abuse Patient Records regulations: The Federal rules restrict any use of the information to criminally investigate or prosecute any alcohol or drug abuse patient.[facility] HospitalIn the event this information is protected by the Federal Confidentiality of Alcohol and Drug Abuse Patient Records regulations: The Federal rules restrict any use of the information to criminally investigate or prosecute any alcohol or drug abuse patient.[facility] HospitalIn the event this information is protected by the Federal Confidentiality of Alcohol and Drug Abuse Patient Records regulations: The Federal rules restrict any use of the information to criminally investigate or prosecute any alcohol or drug abuse patient.[facility] HospitalIn the event this information is protected by the Federal Confidentiality of Alcohol and Drug Abuse Patient Records regulations: The Federal rules restrict any use of the information to criminally investigate or prosecute any alcohol or drug abuse patient.[facility] HospitalIn the event this information is protected by the Federal Confidentiality of Alcohol and Drug Abuse Patient Records regulations: The Federal rules restrict any use of the information to criminally investigate or prosecute any alcohol or drug abuse patient.[facility] HospitalIn the event this information is protected by the Federal Confidentiality of Alcohol and Drug Abuse Patient Records regulations: The Federal rules restrict any use of the information to criminally investigate or prosecute any alcohol or drug abuse patient.[facility] HospitalIn the event this information is protected by the Federal Confidentiality of Alcohol and Drug Abuse Patient Records regulations: The Federal rules restrict any use of the information to criminally investigate or prosecute any alcohol or drug abuse patient.[facility] HospitalIn the event this information is protected by the Federal Confidentiality of Alcohol and Drug Abuse Patient Records regulations: The Federal rules restrict any use of the information to criminally investigate or prosecute any alcohol or drug abuse patient.[facility] HospitalIn the event this information is protected by the Federal Confidentiality of Alcohol and Drug Abuse Patient Records regulations: The Federal rules restrict any use of the information to criminally investigate or prosecute any alcohol or drug abuse patient.[facility] HospitalIn the event this information is protected by the Federal Confidentiality of Alcohol and Drug Abuse Patient Records regulations: The Federal rules restrict any use of the information to criminally investigate or prosecute any alcohol or drug abuse patient.[facility] HospitalIn the event this information is protected by the Federal Confidentiality of Alcohol and Drug Abuse Patient Records regulations: The Federal rules restrict any use of the information to criminally investigate or prosecute any alcohol or drug abuse patient.[facility] HospitalIn the event this information is protected by the Federal Confidentiality of Alcohol and Drug Abuse Patient Records regulations: The Federal rules restrict any use of the information to criminally investigate or prosecute any alcohol or drug abuse patient.[facility] HospitalIn the event this information is protected by the Federal Confidentiality of Alcohol and Drug Abuse Patient Records regulations: The Federal rules restrict any use of the information to criminally investigate or prosecute any alcohol or drug abuse patient.[facility] HospitalIn the event this information is protected by the Federal Confidentiality of Alcohol and Drug Abuse Patient Records regulations: The Federal rules restrict any use of the information to criminally investigate or prosecute any alcohol or drug abuse patient.[facility] HospitalIn the event this information is protected by the Federal Confidentiality of Alcohol and Drug Abuse Patient Records regulations: The Federal rules restrict any use of the information to criminally investigate or prosecute any alcohol or drug abuse patient.[facility] HospitalIn the event this information is protected by the Federal Confidentiality of Alcohol and Drug Abuse Patient Records regulations: The Federal rules restrict any use of the information to criminally investigate or prosecute any alcohol or drug abuse patient.[facility] HospitalIn the event this information is protected by the Federal Confidentiality of Alcohol and Drug Abuse Patient Records regulations: The Federal rules restrict any use of the information to criminally investigate or prosecute any alcohol or drug abuse patient.[facility] Care Teams (unrecognized sec tion and content) Surgery Aide Relationship Specialty Start Date End Date Carolina Hirsch [address] [place] [place] [address] PCP - General REGULATORY AND COMPLIANCE TECHNICIAN 05/01/17 Surgery Aide Relationship Specialty Start Date End Date Carolina Hirsch [address] [place] [address] PCP - General REGULATORY AND COMPLIANCE TECHNICIAN 05/01/17 Surgery Aide Relationship Specialty Start Date End Date Carolina Hirsch [address] [place] [address] PCP - General REGULATORY AND COMPLIANCE TECHNICIAN 05/01/17 Surgery Aide Relationship Specialty Start Date End Date Carolina Hirsch [address] [place] [address] PCP - General REGULATORY AND COMPLIANCE TECHNICIAN 05/01/17 Surgery Aide Relationship Specialty Start Date End Date Carolina Hirsch [address] [place] [address] PCP - General REGULATORY AND COMPLIANCE TECHNICIAN 05/01/17 Surgery Aide Relationship Specialty Start Date End Date Carolina Hirsch [address] [place] [address] PCP - General REGULATORY AND COMPLIANCE TECHNICIAN 05/01/17 Surgery Aide Relationship Specialty Start Date End Date Carolina Hirsch [address] [place] [address] PCP - General REGULATORY AND COMPLIANCE TECHNICIAN 05/01/17 Surgery Aide Relationship Specialty Start Date End Date Joselyn Marcos, REMOTE SENSING SURVEYOR.GENERATOR WORKER [address] [place] [address] PCP - General Family Practice 04/24/22 Surgery Aide Relationship Specialty Start Date End Date Joselyn Marcos, REMOTE SENSING SURVEYOR.GENERATOR WORKER [address] [place] [address] PCP - General Family Practice 04/24/22 Surgery Aide Relationship Specialty Start Date End Date Joselyn Marcos, REMOTE SENSING SURVEYOR.GENERATOR WORKER [address] [place] [address] PCP - General Family Practice 04/24/22 Surgery Aide Relationship Specialty Start Date End Date Joselyn Marcos, REMOTE SENSING SURVEYOR.GENERATOR WORKER [address] [place] [address] PCP - General Family Medicine 04/24/22 Surgery Aide Relationship Specialty Start Date End Date Joselyn Marcos, REMOTE SENSING SURVEYOR.GENERATOR WORKER PCP - General Family Medicine 04/24/22 Surgery Aide Relationship Specialty Start Date End Date Joselyn Marcos REMOTE SENSING SURVEYOR.GENERATOR WORKER PCP - General Family Medicine 04/24/22 Surgery Aide Relationship Specialty Start Date End Date Joselyn Marcos REMOTE SENSING SURVEYOR.GENERATOR WORKER PCP - General Family Medicine 04/24/22 Surgery Aide Relationship Specialty Start Date End Date Joselyn Marcos, REMOTE SENSING SURVEYOR.GENERATOR WORKER PCP - General Family Medicine 04/24/22 Surgery Aide Relationship Specialty Start Date End Date Joselyn Marcos, REMOTE SENSING SURVEYOR.GENERATOR WORKER PCP - General Family Medicine 04/24/22 Surgery Aide Relationship Specialty Start Date End Date Joselyn Marcos REMOTE SENSING SURVEYOR.GENERATOR WORKER PCP - General Family Medicine 04/24/22 Surgery Aide Relationship Specialty Start Date End Date Joselyn Marcos REMOTE SENSING SURVEYOR.GENERATOR WORKER PCP - General Family Medicine 04/24/22 Surgery Aide Relationship Specialty Start Date End Date Joselyn Marcos, REMOTE SENSING SURVEYOR.GENERATOR WORKER [address] [facility] [address] [place], [place] [id number] PCP - General Family Medicine 04/24/22 Team Status: Inactive Member Role Status Dates Joselyn Marcos CASE RESOLUTION SPECIALIST, CASE RESOLUTION SPECIALIST-C Attending Provider Active Team Status: Inactive Member Role Status Dates Joselyn Marcos CASE RESOLUTION SPECIALIST, CASE RESOLUTION SPECIALIST-C Attending Provider, Referring Provider Active Surgery Aide Relationship Specialty Start Date End Date Joselyn Marcos, REMOTE SENSING SURVEYOR.GENERATOR WORKER [address] [place], [place] [id number] PCP - General Family Medicine 04/24/22 Surgery Aide Relationship Specialty Start Date End Date Jsoelyn Marcos, REMOTE SENSING SURVEYOR.GENERATOR WORKER [address] [place], [place] [phone] PCP - General Family Medicine 04/24/22 Surgery Aide Relationship Specialty Start Date End Date Joselyn Marcos, REMOTE SENSING SURVEYOR.GENERATOR WORKER [address] [place] [address] PCP - General Family Medicine 04/24/22 Surgery Aide Relationship Specialty Start Date End Date Joselyn Marcos, REMOTE SENSING SURVEYOR.GENERATOR WORKER [address] [facility], [place] [id number] [phone] PCP - General Family Medicine 04/24/22 Surgery Aide Relationship Specialty Start Date End Date Joselyn Marcos, REMOTE SENSING SURVEYOR.GENERATOR WORKER [address] [place], [place] [phone] PCP - General Family Medicine 04/24/22 Surgery Aide Relationship Specialty Start Date End Date Joselyn Marcos, REMOTE SENSING SURVEYOR.GENERATOR WORKER [address] [facility] [place] [address] PCP - General Family Medicine 04/24/22 Surgery Aide Relationship Specialty Start Date End Date Joselyn Marcos, REMOTE SENSING SURVEYOR.GENERATOR WORKER [address] [facility] [place] [address] PCP - General Family Medicine 04/24/22 Surgery Aide Relationship Specialty Start Date End Date Joselyn Marcos, REMOTE SENSING SURVEYOR.GENERATOR WORKER [address] [place] [address] PCP - General Family Medicine 04/24/22 Surgery Aide Relationship Specialty Start Date End Date Joselyn Marcos, REMOTE SENSING SURVEYOR.GENERATOR WORKER [address] [place] [address] PCP - General Family Medicine 04/24/22 Surgery Aide Relationship Specialty Start Date End Date Joselyn Marcos, REMOTE SENSING SURVEYOR.GENERATOR WORKER [address] [place] [address] PCP - General Family Medicine 04/24/22 Surgery Aide Relationship Specialty Start Date End Date Joselyn Marcos, REMOTE SENSING SURVEYOR.GENERATOR WORKER [address] [place] [address] PCP - General Family Medicine 04/24/22 Surgery Aide Relationship Specialty Start Date End Date Joselyn Marcos, REMOTE SENSING SURVEYOR.GENERATOR WORKER [address] [place] [address] PCP - General Family Medicine 04/24/22 Surgery Aide Relationship Specialty Start Date End Date Joselyn Marcos, REMOTE SENSING SURVEYOR.GENERATOR WORKER [address] [place] [address] PCP - General Family Medicine 04/24/22 Surgery Aide Relationship Specialty Start Date End Date Joselyn Marcos, REMOTE SENSING SURVEYOR.GENERATOR WORKER [address] [place] [address] PCP - General Family Medicine 04/24/22 Surgery Aide Relationship Specialty Start Date End Date Joselyn Marcos, REMOTE SENSING SURVEYOR.GENERATOR WORKER [address] [place] [address] PCP - General Family Medicine 04/24/22 Surgery Aide Relationship Specialty Start Date End Date Joselyn Marcos, REMOTE SENSING SURVEYOR.GENERATOR WORKER [address] [place] [address] PCP - General Family Medicine 7/27/22 Surgery Aide Relationship Specialty Start Date End Date Joselyn Marcos APRN.SANDRA [address] [facility] [address] [place] [address] PCP - General Family Medicine 04/24/22 Team Status: Active Member Role/Relationship Status Dates Joselyn Marcos CASE RESOLUTION SPECIALIST, CASE RESOLUTION SPECIALIST-C Primary Care Provider Active Team Status: Inactive Member Role/Relationship Status Dates Joselyn Marcos CASE RESOLUTION SPECIALIST, CASE RESOLUTION SPECIALIST-C Attending Provider Active Start: May 03, 2025 End: May 03, 2025 Joselyn Marcos CASE RESOLUTION SPECIALIST, CASE RESOLUTION SPECIALIST-C Referring Provider Active Start: May 03, 2025 End: May 03, 2025 Team Status: Inactive Member Role/Relationship Status Dates Joselyn Marcos CASE RESOLUTION SPECIALIST, CASE RESOLUTION SPECIALIST-C Primary Care Provider Active Start: May 03, 2025 End: May 03, 2025 Joselyn Marcos Attending Provider Active Start: May 03, 2025 End: May 03, 2025 Joselyn Marcos Referring Provider Active Start: May 03, 2025 End: May 03, 2025 Reason for Visit (unrecogniz ed section and [...] may be documented in a n alternate sectionGoals may be documented in an alternate section Active Administered Medications - up [...] BE BASED ON THE PRIMARY CLINICAL RECORDS. [employer] [facility] provides no warranty or guarantee of the accuracy or completeness of information in this document.
== END | disposition home or self-care (01) ==
PROVIDERS: PCP Nurse Practitioner; Visit Provider Nurse Practitioner
DX: N39.0 Urinary tract infection, site not specified (principal); B96.29 Other Escherichia coli [E. coli] as the cause of diseases classified elsewhere; Z16.12 Extended spectrum beta lactamase (ESBL) resistance
CPT/HCPCS: 87077; 87086; 87088; 87186